=== PATIENT | female | born 1940 | race Caucasian/White ===

== ENCOUNTER 2022-03-02 13:51 | Outpatient (CLI) | payer MEDICARE, BC | END 2022-03-02 13:52 | disposition home or self-care (01) | LOC: EEG 13:51 | PROVIDERS: ATTEND Psychiatry & Neurology Neurology | DX: R53.1 Weakness (principal) | CPT/HCPCS: 95712; 95816; 95957 ==

== ENCOUNTER 2022-03-26 08:24 | Outpatient (CLI) | payer MEDICARE, BC | END 2022-03-26 08:25 | disposition home or self-care (01) | LOC: SCSMRI 08:24 | PROVIDERS: ATTEND Psychiatry & Neurology Neurology | DX: R26.81 Unsteadiness on feet (principal); R53.82 Chronic fatigue, unspecified; M50.30 Other cervical disc degeneration, unspecified cervical region; M48.02 Spinal stenosis, cervical region; M50.81 Other cervical disc disorders, high cervical region | CPT/HCPCS: 72141 ==

== ENCOUNTER 2022-04-30 08:00 | Outpatient (CLI) | payer MEDICARE, BC | END 2022-04-30 08:01 | disposition home or self-care (01) | LOC: PET 08:00 | PROVIDERS: ATTEND Psychiatry & Neurology Neurology | DX: F03.90 Unspecified dementia, unspecified severity, without behavioral disturbance, psychotic disturbance, mood disturbance, and anxiety (principal) | CPT/HCPCS: 78803; A9552 ==

== ENCOUNTER 2022-06-25 05:40 | Inpatient (IN) | payer MEDICARE, BC ==
[2022-06-25] MEDS ORDERED: Fentanyl 100 MCG/2 ML VIAL ONE ×3 (06:02→14:17)
[2022-06-25] MEDS ORDERED: Ondansetron PF 4 MG/2 ML Vial ONE ×2 (06:03→18:06)
[2022-06-25 07:04] LABS: ALT (SGPT) Less than 7 U/L (8-55); AST (SGOT) 14 U/L (5-34); Albumin 3.7 g/dL (3.4-4.8); Alkaline Phosphatase 54 U/L (40-110); Anion Gap 13 mmol/L (10-20); BUN (Urea Nitrogen) 25 mg/dL (9.8-20.1); Bilirubin, Total 0.7 mg/dL (0.2-1.2); Calc. Creatinine Clearance 0 mL/min (70-130); Calcium 9.4 mg/dL (7.8-10.44); Carbon Dioxide 25 mmol/L (23-31); Chloride 102 mmol/L (98-107); Estimated GFR 82; Globulin 3.4 g/dL (2.4-3.5); Glucose 111 mg/dL (83-110); Potassium 3.7 mmol/L (3.5-5.1); Protein, Total 7.1 g/dL (5.8-8.1); Sodium 136 mmol/L (136-145)
[2022-06-25] MEDS ORDERED: Dextrose 5% in Water 1,000 ML IV PRN (07:10)
[2022-06-25] MEDS ORDERED: hydrALAZINE 20 MG/ML VIAL SLOW IVP PRN (07:10)
[2022-06-25] MEDS ORDERED: Dextrose 50% Abboject 50 ML SYRINGE SLOW IVP PRN (07:10)
[2022-06-25] MEDS ORDERED: Ondansetron PF 4 MG/2 ML Vial IVP PRN (07:10)
[2022-06-25] MEDS ORDERED: traMADol HCl 50 MG TAB PO PRN (07:12)
[2022-06-25 07:13] LABS: #Basophils 0.1 thou/uL (0.0-0.2); #Eosinphils 0.1 thou/uL (0.0-0.7); #Lymphocytes 1.5 thou/uL (1.20-3.40); #Monocytes 0.6 thou/uL (0.11-0.59); #Neutrophils 11.1 thou/uL (1.40-6.50); %Basophils 0.4 % (0.0-1.0); %Eosinophils 0.8 % (0.0-10.0); %Lymphocytes 11.3 % (21.0-51.0); %Monocytes 4.6 % (0.0-10.0); Hemoglobin 13.1 g/dL (12.0-16.0); Mean Corpuscular HGB CONC 31.8 g/dL (32.0-36.0); Mean Corpuscular Hemoglobin 27.2 pg (27.0-31.0); Mean Corpuscular Volume 85.8 fL (78.0-98.0); Mean Platelet Volume 8.3 fL (7.4-10.4); Platelet Count 178 thou/uL (130-400); RBC Distribution Width 12.4 % (11.5-14.5); White Blood Cell (WBC) Count 13.3 thou/uL (4.8-10.8)
[2022-06-25] MEDS ORDERED: Sodium Chloride 0.9% 1,000 ML IV SCH (07:15)
[2022-06-25] MEDS ORDERED: CEFAZOLIN 2 GM in Sodium Chloride 0.9% 100 ML IVPB SCH (07:30)
[2022-06-25 07:34] LABS: SARS-CoV-2 NAA Rapid Test Not Detected (NotDetected)
[2022-06-25 07:41] LABS: Magnesium 1.8 mg/dL (1.6-2.6); Phosphorus 3.1 mg/dL (2.3-4.7)
[2022-06-25] MEDS ORDERED: Clindamycin/D5W 900 MG in Premix Bag 1 BAG IVPB SCH (08:15)
[2022-06-25] MEDS ORDERED: Morphine 4 MG/ML VIAL ONE (08:50)
[2022-06-25] MEDS: Morphine 4 MG/ML VIAL SLOW IVP PRN ×2 (08:55→11:25)
[2022-06-25 09:40] VITALS: BMI 35.9
[2022-06-25] MEDS: Acetaminophen 500 MG TAB PO SCH ×3 (09:40→22:40)
[2022-06-25] MEDS: Senokot S 8.6-50 MG TAB PO SCH ×2 (09:42→22:39)
[2022-06-25] MEDS: Gabapentin 100 MG CAP PO SCH ×3 (09:42→22:39)
[2022-06-25] MEDS: Famotidine 20 MG TAB PO SCH ×2 (09:42→22:40)
[2022-06-25] MEDS: Polyethylene Glycol 3350 17 GM Packet PO SCH (09:43)
[2022-06-25] MEDS ORDERED: traMADol HCl 50 MG TAB ONE (09:51)
[2022-06-25] MEDS ORDERED: fentaNYL Citrate/PF 100 MCG/2 ML SYRINGE ONE ×2 (16:13→20:24)
[2022-06-25] MEDS ORDERED: Propofol 1,000 MG/100 ML VIAL IV ONE (16:13)
[2022-06-25] MEDS ORDERED: Phenylephrine 10 MG/ML VIAL ONE (16:14)
[2022-06-25] MEDS ORDERED: Clindamycin/D5W 900 mg/50 ml Premix Bag ONE (17:56)
[2022-06-25] MEDS ORDERED: Dexamethasone 20 MG/5 ML VIAL ONE (18:06)
[2022-06-25] MEDS ORDERED: Lidocaine 1% PF 5 ML VIAL ONE (18:06)
[2022-06-25] MEDS ORDERED: PHENYLEPHRINE-NS 100 MCG/ML 10 ML SYRINGE ONE (18:06)
[2022-06-25] MEDS ORDERED: PROPOFOL 200 MG/20 ML VIAL ONE (18:06)
[2022-06-25] MEDS ORDERED: Ondansetron HCl/PF 4 MG/2 ML Vial IVP PRN (18:33)
[2022-06-25] MEDS ORDERED: Promethazine HCl 25 MG/ML VIAL IVPB PRN (18:33)
[2022-06-25] MEDS ORDERED: Promethazine HCl 25 MG/ML VIAL IM PRN (18:33)
[2022-06-25] MEDS ORDERED: Meperidine HCl/PF 25 MG/ML VIAL ONE (20:40)
[2022-06-25] MEDS: Carbidopa/Levodopa CR 50-200 mg Tablet PO SCH (22:40)
[2022-06-26] MEDS: Clindamycin/D5W 900 MG in Premix Bag 1 BAG IVPB SCH ×3 (02:55→17:20)
[2022-06-26] MEDS: Acetaminophen 500 MG TAB PO SCH ×4 (02:55→20:52)
[2022-06-26] MEDS: traMADol HCl 50 MG TAB PO PRN ×2 (04:36→10:47)
[2022-06-26] MEDS: Cyclobenzaprine 10 MG TAB PO PRN ×2 (04:36→20:54)
[2022-06-26 05:30] LABS: Anion Gap 11 mmol/L (10-20); BUN (Urea Nitrogen) 22 mg/dL (9.8-20.1); Calc. Creatinine Clearance 87 mL/min (70-130); Calcium 8.8 mg/dL (7.8-10.44); Carbon Dioxide 25 mmol/L (23-31); Chloride 101 mmol/L (98-107); Estimated GFR 88; Glucose 131 mg/dL (83-110); Magnesium 1.7 mg/dL (1.6-2.6); Phosphorus 3.7 mg/dL (2.3-4.7); Potassium 3.7 mmol/L (3.5-5.1); Sodium 133 mmol/L (136-145)
[2022-06-26 05:50] LABS: Band 17 % (5-11); Hemoglobin 11.5 g/dL (12.0-16.0); Lymphocytes 9 % (21-51); MDiff Complete? YES; Mean Corpuscular HGB CONC 31.7 g/dL (32.0-36.0); Mean Corpuscular Hemoglobin 27.2 pg (27.0-31.0); Mean Corpuscular Volume 85.9 fL (78.0-98.0); Mean Platelet Volume 8.1 fL (7.4-10.4); Monocytes 3 % (0-10); Neutrophil 71 % (42-75); Platelet Count 180 thou/uL (130-400); RBC Distribution Width 12.3 % (11.5-14.5); Red Blood Cell (RBC) Count 4.23 mill/uL (4.20-5.40); White Blood Cell (WBC) Count 9.9 thou/uL (4.8-10.8)
[2022-06-26] MEDS ORDERED: Magnesium 2 GM/50 ML(in water) 2 GM in Premix Bag 1 BAG IVPB SCH (08:00)
[2022-06-26] MEDS ORDERED: Potassium Phosphate 15 MMOL, Magnesium Sulfate 2 GM in Sodium Chloride 0.9% 250 ML 250 ML IVPB SCH (08:00)
[2022-06-26] MEDS: Carbidopa/Levodopa CR 50-200 mg Tablet PO SCH ×2 (09:04→20:53)
[2022-06-26] MEDS: Gabapentin 100 MG CAP PO SCH ×3 (09:04→20:52)
[2022-06-26] MEDS: Famotidine 20 MG TAB PO SCH ×2 (09:05→20:54)
[2022-06-26] MEDS: FLUoxetine HCl 20 MG CAP PO SCH (09:05)
[2022-06-26] MEDS: Polyethylene Glycol 3350 17 GM Packet PO SCH (09:05)
[2022-06-26] MEDS: Senokot S 8.6-50 MG TAB PO SCH ×2 (09:05→20:54)
[2022-06-26] MEDS: Aspirin 81 mg Enteric Coated Tablet PO SCH ×2 (09:11→20:54)
[2022-06-27] MEDS: Acetaminophen 500 MG TAB PO SCH ×3 (03:15→14:23)
[2022-06-27 06:47] LABS: #Basophils 0.1 thou/uL (0.0-0.2); #Lymphocytes 1.7 thou/uL (1.20-3.40); #Monocytes 0.9 thou/uL (0.11-0.59); #Neutrophils 6.6 thou/uL (1.40-6.50); %Basophils 0.8 % (0.0-1.0); %Eosinophils 0.4 % (0.0-10.0); %Lymphocytes 17.8 % (21.0-51.0); %Monocytes 9.9 % (0.0-10.0); %Neutrophils 71.1 % (42.0-75.0); Hemoglobin 11.1 g/dL (12.0-16.0); Mean Corpuscular HGB CONC 31.2 g/dL (32.0-36.0); Mean Corpuscular Hemoglobin 27.2 pg (27.0-31.0); Mean Platelet Volume 8.7 fL (7.4-10.4); Platelet Count 186 thou/uL (130-400); RBC Distribution Width 12.5 % (11.5-14.5); White Blood Cell (WBC) Count 9.3 thou/uL (4.8-10.8)
[2022-06-27 06:58] LABS: Anion Gap 12 mmol/L (10-20); BUN (Urea Nitrogen) 19 mg/dL (9.8-20.1); Calc. Creatinine Clearance 90 mL/min (70-130); Carbon Dioxide 23 mmol/L (23-31); Chloride 105 mmol/L (98-107); Estimated GFR 89; Glucose 97 mg/dL (83-110); Magnesium 2.2 mg/dL (1.6-2.6); Phosphorus 2.7 mg/dL (2.3-4.7); Sodium 136 mmol/L (136-145)
[2022-06-27] MEDS ORDERED: PHOS-NAK 1 PKT PACK PO SCH (08:15)
[2022-06-27] MEDS: Senokot S 8.6-50 MG TAB PO SCH (09:15)
[2022-06-27] MEDS: Gabapentin 100 MG CAP PO SCH ×2 (09:15→14:24)
[2022-06-27] MEDS: FLUoxetine HCl 20 MG CAP PO SCH (09:15)
[2022-06-27] MEDS: Famotidine 20 MG TAB PO SCH (09:15)
[2022-06-27] MEDS: Polyethylene Glycol 3350 17 GM Packet PO SCH (09:16)
[2022-06-27] MEDS: Aspirin 81 mg Enteric Coated Tablet PO SCH (09:16)
[2022-06-27] MEDS: Carbidopa/Levodopa CR 50-200 mg Tablet PO SCH (09:16)
[2022-06-27 10:03] LABS: Bacteria/HPF None Seen HPF (None Seen); Bilirubin Negative (Negative); Blood, Urine Negative (Negative); Clarity Clear (Clear); Glucose, Urine (Dipstick) Normal (Negative); Ketone, Urine Negative (Negative); Leukocyte Negative Leu/uL (Negative); Nitrite Negative (Negative); Protein, Urine (Dipstick) Negative (Neg-Trace); RBC/HPF 0-3 HPF (0-3); Squamous Epithelial 0-3 HPF (0-3); Urobilinogen Normal mg/dL (Less than 2); WBC/HPF 0-3 HPF (0-3); pH, Urine 6.5 (5.0-9.0)
[2022-06-27] MEDS ORDERED: traMADol HCl 50 MG TAB PO PRN (10:55)
[2022-06-27] MEDS ORDERED: traMADol HCl 50 MG TAB PO SCH (12:00)
[2022-06-27 15:56] VITALS: BP 121/69; TEMP 97.9
== END 2022-06-27 15:52 | DRG 482 ==
LOC: ERS 05:40 → SURG A 06:56
PROVIDERS: ADMIT Surgery; ATTEND Surgery
PROC: 0QS704Z Reposition Left Upper Femur with Internal Fixation Device, Open Approach (ICD-10-PCS; principal; 2022-06-25)
DX: S72.142A Displaced intertrochanteric fracture of left femur, initial encounter for closed fracture (principal); I10 Essential (primary) hypertension; G62.9 Polyneuropathy, unspecified; Z96.653 Presence of artificial knee joint, bilateral; F32.A Depression, unspecified; W19.XXXA Unspecified fall, initial encounter; Z20.822 Contact with and (suspected) exposure to COVID-19; Z90.49 Acquired absence of other specified parts of digestive tract; Z90.710 Acquired absence of both cervix and uterus; Z88.0 Allergy status to penicillin; Z88.5 Allergy status to narcotic agent; Z91.81 History of falling; Y92.002 Bathroom of unspecified non-institutional (private) residence as the place of occurrence of the external cause
CPT/HCPCS: 36415; 71045; 76000; 80048; 80053; 81001; 83735; 84100; 85025; 90471; 90732; 93005; 96374; 96375; 96376; C1713; G0009; G0390; J1100; J2175; J2270; J2370; J2405; J2704; J3010; J3475; J3490; J7050; U0002

== ENCOUNTER 2022-08-03 19:57 | Inpatient (IN) | payer MEDICARE, BC ==
[2022-08-03 20:50] LABS: ALT (SGPT) 7 U/L (8-55); AST (SGOT) 11 U/L (5-34); Albumin 3.6 g/dL (3.4-4.8); Alkaline Phosphatase 72 U/L (40-110); Anion Gap 14 mmol/L (10-20); BUN (Urea Nitrogen) 21 mg/dL (9.8-20.1); Bilirubin, Total 0.7 mg/dL (0.2-1.2); Calc. Creatinine Clearance 0 mL/min (70-130); Calcium 9.7 mg/dL (7.8-10.44); Carbon Dioxide 24 mmol/L (23-31); Chloride 99 mmol/L (98-107); Estimated GFR 67; Globulin 3.6 g/dL (2.4-3.5); Glucose 101 mg/dL (83-110); Potassium 3.9 mmol/L (3.5-5.1); Protein, Total 7.2 g/dL (5.8-8.1); Sodium 133 mmol/L (136-145)
[2022-08-03 21:13] LABS: #Basophils 0.1 thou/uL (0.0-0.2); #Eosinphils 0.2 thou/uL (0.0-0.7); #Lymphocytes 1.5 thou/uL (1.20-3.40); #Monocytes 0.8 thou/uL (0.11-0.59); %Basophils 0.7 % (0.0-1.0); %Eosinophils 1.9 % (0.0-10.0); %Lymphocytes 17.8 % (21.0-51.0); %Monocytes 9.6 % (0.0-10.0); Hemoglobin 11.1 g/dL (12.0-16.0); Mean Corpuscular HGB CONC 32.4 g/dL (32.0-36.0); Mean Corpuscular Hemoglobin 28.2 pg (27.0-31.0); Mean Corpuscular Volume 86.8 fl (78.0-98.0); Mean Platelet Volume 8.2 fL (7.4-10.4); Platelet Count 241 10x3/uL (130-400); RBC Distribution Width 13.2 % (11.5-14.5); Red Blood Cell (RBC) Count 3.93 mill/uL (4.20-5.40); White Blood Cell (WBC) Count 8.6 10x3/uL (4.8-10.8)
[2022-08-03 22:42] LABS: Bacteria/HPF 4+ HPF (None Seen); Bilirubin Negative (Negative); Blood, Urine Negative (Negative); Clarity Turbid (Clear); Glucose, Urine (Dipstick) Normal (Negative); Ketone, Urine Negative (Negative); Leukocyte 250 Leu/uL (Negative); Nitrite Negative (Negative); Protein, Urine (Dipstick) Negative (Neg-Trace); RBC/HPF 0-3 HPF (0-3); Squamous Epithelial 0-3 HPF (0-3); Urobilinogen Normal mg/dL (Less than 2); WBC/HPF 21-50 HPF (0-3); pH, Urine 6.5 (5.0-9.0)
[2022-08-03] MEDS ORDERED: cefTRIAXone\\ROCEPHIN 1 GM VIAL ONE (23:06)
[2022-08-04] MEDS ORDERED: Ondansetron ODT 4 MG TAB PO PRN (00:16)
[2022-08-04] MEDS ORDERED: Ondansetron PF 4 MG/2 ML Vial IVP PRN (00:16)
[2022-08-04] MEDS ORDERED: Sterile Water 10 ML VIAL FS PRN (00:30)
[2022-08-04] MEDS ORDERED: OLANZapine 10 MG VIAL IM SCH (00:30)
[2022-08-04] MEDS: Sodium Chloride 0.9% 1,000 ML IV SCH ×2 (01:09→18:13)
[2022-08-04 01:34] VITALS: BMI 34.4
[2022-08-04 02:11] LABS: Amphetamine Not Detected (NotDetected); Barbiturates Screen Not Detected (NotDetected); Benzodiazepine Screen Not Detected (NotDetected); Cocaine Metabolite Screen Not Detected (NotDetected); Methadone Not Detected (NotDetected); Methamphetamine Not Detected (NotDetected); Opiate Screen Not Detected (NotDetected); Oxycodone Screen Not Detected (NotDetected); Phencyclidine (PCP) Not Detected (NotDetected); THC/Cannabinoid Screen Not Detected (NotDetected); Tricyclic Screen Not Detected (NotDetected)
[2022-08-04] MEDS: cefTRIAXone\\ROCEPHIN 1 GM in Sodium Chloride 0.9% 100 ML IVPB SCH (04:31)
[2022-08-04 04:58] LABS: #Eosinphils 0.2 thou/uL (0.0-0.7); #Lymphocytes 2.2 thou/uL (1.20-3.40); #Monocytes 0.7 thou/uL (0.11-0.59); #Neutrophils 3.6 thou/uL (1.40-6.50); %Basophils 0.7 % (0.0-1.0); %Lymphocytes 32.3 % (21.0-51.0); %Monocytes 10.8 % (0.0-10.0); %Neutrophils 53.3 % (42.0-75.0); Hemoglobin 10.3 g/dL (12.0-16.0); Mean Corpuscular HGB CONC 31.9 g/dL (32.0-36.0); Mean Corpuscular Hemoglobin 27.9 pg (27.0-31.0); Mean Corpuscular Volume 87.4 fl (78.0-98.0); Mean Platelet Volume 8.1 fL (7.4-10.4); Platelet Count 209 10x3/uL (130-400); RBC Distribution Width 13.1 % (11.5-14.5); Red Blood Cell (RBC) Count 3.68 mill/uL (4.20-5.40); White Blood Cell (WBC) Count 6.7 10x3/uL (4.8-10.8)
[2022-08-04 05:37] LABS: Anion Gap 11 mmol/L (10-20); BUN (Urea Nitrogen) 18 mg/dL (9.8-20.1); Calc. Creatinine Clearance 76 mL/min (70-130); Calcium 9.4 mg/dL (7.8-10.44); Carbon Dioxide 26 mmol/L (23-31); Chloride 102 mmol/L (98-107); Estimated GFR 80; Glucose 81 mg/dL (83-110); Potassium 3.6 mmol/L (3.5-5.1); Sodium 135 mmol/L (136-145)
[2022-08-04] MEDS ORDERED: Carbidopa/Levodopa CR 50-200 mg Tablet PO SCH (09:00)
[2022-08-04] MEDS ORDERED: Aspirin 325 mg Enteric Coated Tablet PO SCH (09:00)
[2022-08-04] MEDS ORDERED: Magnevist 469MG/ML 20 ML VIAL ONE ×3 (09:02→09:04)
[2022-08-04 11:45] LABS: Cardiac Risk 4.2 (Less than 4.5)
[2022-08-04] MEDS: FLUoxetine HCl 20 MG CAP PO SCH (13:12)
[2022-08-04] MEDS: Senokot S 8.6-50 MG TAB PO SCH ×2 (13:13→20:42)
[2022-08-04] MEDS: Atenolol 50 MG TAB PO SCH (13:26)
[2022-08-04] MEDS: Losartan 25 MG TAB PO SCH (13:27)
[2022-08-04] MEDS: Chlorthalidone 25 MG TAB PO SCH (13:27)
[2022-08-04] MEDS: Carbidopa/Levodopa CR 50-200 mg Tablet PO SCH ×2 (13:27→20:43)
[2022-08-04] MEDS: Acetaminophen 325 MG TAB PO PRN (18:13)
[2022-08-04] MEDS: Famotidine 20 MG TAB PO SCH (20:42)
[2022-08-04] MEDS: Atorvastatin Calcium 40 MG TAB PO SCH (20:42)
[2022-08-04] MEDS: Heparin 5,000 UNITS/ML VIAL SC SCH (20:43)
[2022-08-05] MEDS: cefTRIAXone\\ROCEPHIN 1 GM in Sodium Chloride 0.9% 100 ML IVPB SCH (03:17)
[2022-08-05] MEDS: Sodium Chloride 0.9% 1,000 ML IV SCH ×3 (03:17→20:06)
[2022-08-05 05:00] LABS: #Basophils 0.1 thou/uL (0.0-0.2); #Eosinphils 0.2 thou/uL (0.0-0.7); #Lymphocytes 1.6 thou/uL (1.20-3.40); #Monocytes 0.5 thou/uL (0.11-0.59); #Neutrophils 2.5 thou/uL (1.40-6.50); %Eosinophils 4.3 % (0.0-10.0); %Lymphocytes 32.3 % (21.0-51.0); %Monocytes 10.4 % (0.0-10.0); %Neutrophils 51.9 % (42.0-75.0); Hemoglobin 10.4 g/dL (12.0-16.0); Mean Corpuscular HGB CONC 31.3 g/dL (32.0-36.0); Mean Corpuscular Hemoglobin 27.9 pg (27.0-31.0); Mean Corpuscular Volume 89.1 fl (78.0-98.0); Platelet Count 185 10x3/uL (130-400); RBC Distribution Width 13.2 % (11.5-14.5); Red Blood Cell (RBC) Count 3.71 mill/uL (4.20-5.40); White Blood Cell (WBC) Count 4.8 10x3/uL (4.8-10.8)
[2022-08-05 05:18] LABS: ALT (SGPT) Less than 7 U/L (8-55); AST (SGOT) 11 U/L (5-34); Albumin 3.2 g/dL (3.4-4.8); Alkaline Phosphatase 62 U/L (40-110); Anion Gap 10 mmol/L (10-20); BUN (Urea Nitrogen) 15 mg/dL (9.8-20.1); Bilirubin, Total 0.6 mg/dL (0.2-1.2); Calc. Creatinine Clearance 85 mL/min (70-130); Calcium 9.3 mg/dL (7.8-10.44); Carbon Dioxide 27 mmol/L (23-31); Chloride 105 mmol/L (98-107); Estimated GFR 88; Globulin 3.1 g/dL (2.4-3.5); Glucose 80 mg/dL (83-110); Potassium 3.7 mmol/L (3.5-5.1); Protein, Total 6.3 g/dL (5.8-8.1); Sodium 138 mmol/L (136-145)
[2022-08-05] MEDS: Chlorthalidone 25 MG TAB PO SCH (11:43)
[2022-08-05] MEDS: Losartan 25 MG TAB PO SCH (11:43)
[2022-08-05] MEDS: Carbidopa/Levodopa CR 50-200 mg Tablet PO SCH ×3 (11:43→21:03)
[2022-08-05] MEDS: Senokot S 8.6-50 MG TAB PO SCH ×2 (11:44→21:04)
[2022-08-05] MEDS: FLUoxetine HCl 20 MG CAP PO SCH (11:44)
[2022-08-05] MEDS: Atenolol 50 MG TAB PO SCH (11:44)
[2022-08-05] MEDS: Famotidine 20 MG TAB PO SCH ×2 (12:20→21:03)
[2022-08-05] MEDS: Heparin 5,000 UNITS/ML VIAL SC SCH ×2 (12:46→21:03)
[2022-08-05] MEDS: Atorvastatin Calcium 40 MG TAB PO SCH (21:02)
[2022-08-05] MEDS: Melatonin 3 MG TAB PO PRN (21:03)
[2022-08-06] MEDS: cefTRIAXone\\ROCEPHIN 1 GM in Sodium Chloride 0.9% 100 ML IVPB SCH (03:24)
[2022-08-06 04:14] LABS: #Basophils 0.1 thou/uL (0.0-0.2); #Eosinphils 0.2 thou/uL (0.0-0.7); #Lymphocytes 1.3 thou/uL (1.20-3.40); #Monocytes 0.5 thou/uL (0.11-0.59); #Neutrophils 2.6 thou/uL (1.40-6.50); %Basophils 1.2 % (0.0-1.0); %Eosinophils 3.5 % (0.0-10.0); %Lymphocytes 28.7 % (21.0-51.0); %Monocytes 10.2 % (0.0-10.0); %Neutrophils 56.4 % (42.0-75.0); Mean Corpuscular HGB CONC 32.6 g/dL (32.0-36.0); Mean Corpuscular Hemoglobin 28.9 pg (27.0-31.0); Mean Corpuscular Volume 88.7 fl (78.0-98.0); Mean Platelet Volume 7.4 fL (7.4-10.4); Platelet Count 168 10x3/uL (130-400); RBC Distribution Width 12.8 % (11.5-14.5); Red Blood Cell (RBC) Count 3.45 mill/uL (4.20-5.40); White Blood Cell (WBC) Count 4.6 10x3/uL (4.8-10.8)
[2022-08-06 04:55] LABS: ALT (SGPT) Less than 7 U/L (8-55); AST (SGOT) 8 U/L (5-34); Albumin 2.6 g/dL (3.4-4.8); Alkaline Phosphatase 49 U/L (40-110); Anion Gap 12 mmol/L (10-20); BUN (Urea Nitrogen) 9 mg/dL (9.8-20.1); Bilirubin, Total 0.4 mg/dL (0.2-1.2); Calc. Creatinine Clearance 96 mL/min (70-130); Calcium 7.5 mg/dL (7.8-10.44); Carbon Dioxide 23 mmol/L (23-31); Chloride 110 mmol/L (98-107); Estimated GFR 91; Globulin 2.6 g/dL (2.4-3.5); Glucose 75 mg/dL (83-110); Magnesium 1.3 mg/dL (1.6-2.6); Phosphorus 3.6 mg/dL (2.3-4.7); Potassium 2.9 mmol/L (3.5-5.1); Protein, Total 5.2 g/dL (5.8-8.1); Sodium 142 mmol/L (136-145)
[2022-08-06] MEDS: Acetaminophen 325 MG TAB PO PRN (05:13)
[2022-08-06] MEDS ORDERED: Electrolyte Replacement Protocol 1 EACH FS SCH (07:46)
[2022-08-06 09:30] LABS: Anion Gap 11 mmol/L (10-20); BUN (Urea Nitrogen) 9 mg/dL (9.8-20.1); Calc. Creatinine Clearance 87 mL/min (70-130); Carbon Dioxide 27 mmol/L (23-31); Chloride 102 mmol/L (98-107); Estimated GFR 89; Glucose 105 mg/dL (83-110); Magnesium 1.6 mg/dL (1.6-2.6); Potassium 3.3 mmol/L (3.5-5.1); Sodium 137 mmol/L (136-145)
[2022-08-06] MEDS: FLUoxetine HCl 20 MG CAP PO SCH (10:33)
[2022-08-06] MEDS: Chlorthalidone 25 MG TAB PO SCH (10:34)
[2022-08-06] MEDS: Famotidine 20 MG TAB PO SCH ×2 (10:34→20:51)
[2022-08-06] MEDS: Losartan 25 MG TAB PO SCH (10:35)
[2022-08-06] MEDS: Potassium Chloride 20 MEQ TAB PO SCH ×2 (10:35→17:53)
[2022-08-06] MEDS: Atenolol 50 MG TAB PO SCH (10:35)
[2022-08-06] MEDS: Senokot S 8.6-50 MG TAB PO SCH ×2 (10:36→20:51)
[2022-08-06] MEDS: Magnesium Sulfate In Water 4 GM in Premix Bag 1 BAG IVPB SCH ×2 (10:36→10:48)
[2022-08-06] MEDS: Magnesium Sulfate 4 GM in Sodium Chloride 0.9% 250 ML 250 ML IVPB SCH ×2 (10:37→10:49)
[2022-08-06] MEDS: Carbidopa/Levodopa CR 50-200 mg Tablet PO SCH ×3 (10:41→20:52)
[2022-08-06] MEDS: Heparin 5,000 UNITS/ML VIAL SC SCH ×2 (10:46→20:52)
[2022-08-06] MEDS: Sodium Chloride 0.9% 1,000 ML IV SCH (11:05)
[2022-08-06] MEDS: Atorvastatin Calcium 40 MG TAB PO SCH (20:51)
[2022-08-06] MEDS: Melatonin 3 MG TAB PO PRN (20:52)
[2022-08-07] MEDS: cefTRIAXone\\ROCEPHIN 1 GM in Sodium Chloride 0.9% 100 ML IVPB SCH (03:23)
[2022-08-07] MEDS: Sodium Chloride 0.9% 1,000 ML IV SCH ×2 (03:23→18:15)
[2022-08-07 04:40] LABS: #Eosinphils 0.2 thou/uL (0.0-0.7); #Lymphocytes 1.2 thou/uL (1.20-3.40); #Monocytes 0.5 thou/uL (0.11-0.59); #Neutrophils 3.1 thou/uL (1.40-6.50); %Eosinophils 4.5 % (0.0-10.0); %Lymphocytes 22.8 % (21.0-51.0); %Monocytes 9.8 % (0.0-10.0); Hemoglobin 10.7 g/dL (12.0-16.0); Mean Corpuscular HGB CONC 31.2 g/dL (32.0-36.0); Mean Corpuscular Hemoglobin 27.7 pg (27.0-31.0); Mean Corpuscular Volume 88.7 fl (78.0-98.0); Mean Platelet Volume 7.7 fL (7.4-10.4); Platelet Count 190 10x3/uL (130-400); Red Blood Cell (RBC) Count 3.85 mill/uL (4.20-5.40); White Blood Cell (WBC) Count 5.1 10x3/uL (4.8-10.8)
[2022-08-07 05:06] LABS: ALT (SGPT) Less than 7 U/L (8-55); AST (SGOT) 10 U/L (5-34); Albumin 3.3 g/dL (3.4-4.8); Alkaline Phosphatase 66 U/L (40-110); Anion Gap 10 mmol/L (10-20); BUN (Urea Nitrogen) 6 mg/dL (9.8-20.1); Bilirubin, Total 0.6 mg/dL (0.2-1.2); Calc. Creatinine Clearance 86 mL/min (70-130); Calcium 8.7 mg/dL (7.8-10.44); Carbon Dioxide 27 mmol/L (23-31); Chloride 104 mmol/L (98-107); Estimated GFR 89; Globulin 2.8 g/dL (2.4-3.5); Glucose 88 mg/dL (83-110); Magnesium 1.8 mg/dL (1.6-2.6); Protein, Total 6.1 g/dL (5.8-8.1); Sodium 137 mmol/L (136-145)
[2022-08-07 05:12] LABS: Phosphorus 2.9 mg/dL (2.3-4.7)
[2022-08-07] MEDS ORDERED: Magnesium 2 GM/50 ML(in water) 2 GM in Premix Bag 1 BAG IVPB SCH (08:00)
[2022-08-07] MEDS: Heparin 5,000 UNITS/ML VIAL SC SCH ×2 (09:26→21:48)
[2022-08-07] MEDS: Aspirin 81 mg Enteric Coated Tablet PO SCH (09:26)
[2022-08-07] MEDS: Atenolol 50 MG TAB PO SCH (09:26)
[2022-08-07] MEDS: Losartan 25 MG TAB PO SCH (09:26)
[2022-08-07] MEDS: Chlorthalidone 25 MG TAB PO SCH (09:26)
[2022-08-07] MEDS: FLUoxetine HCl 20 MG CAP PO SCH (09:26)
[2022-08-07] MEDS: Carbidopa/Levodopa CR 50-200 mg Tablet PO SCH ×3 (09:26→21:48)
[2022-08-07] MEDS: Senokot S 8.6-50 MG TAB PO SCH ×2 (09:26→21:48)
[2022-08-07] MEDS: Famotidine 20 MG TAB PO SCH ×2 (09:27→21:48)
[2022-08-07] MEDS: Cephalexin 250 MG CAP PO SCH ×2 (18:15→23:28)
[2022-08-07] MEDS: Atorvastatin Calcium 40 MG TAB PO SCH (21:48)
[2022-08-07] MEDS: Melatonin 3 MG TAB PO PRN (21:48)
[2022-08-08] MEDS: Sodium Chloride 0.9% 1,000 ML IV SCH (06:23)
[2022-08-08] MEDS: Cephalexin 250 MG CAP PO SCH ×4 (06:23→23:17)
[2022-08-08] MEDS: Heparin 5,000 UNITS/ML VIAL SC SCH ×2 (10:29→22:28)
[2022-08-08] MEDS: Carbidopa/Levodopa CR 50-200 mg Tablet PO SCH ×3 (10:30→22:30)
[2022-08-08] MEDS: Atenolol 50 MG TAB PO SCH (10:30)
[2022-08-08] MEDS: FLUoxetine HCl 20 MG CAP PO SCH (10:30)
[2022-08-08] MEDS: Aspirin 81 mg Enteric Coated Tablet PO SCH (10:30)
[2022-08-08] MEDS: Chlorthalidone 25 MG TAB PO SCH (10:30)
[2022-08-08] MEDS: Losartan 25 MG TAB PO SCH (10:30)
[2022-08-08] MEDS: Senokot S 8.6-50 MG TAB PO SCH ×2 (10:30→22:28)
[2022-08-08] MEDS: Famotidine 20 MG TAB PO SCH ×2 (10:30→22:29)
[2022-08-08] MEDS: Atorvastatin Calcium 40 MG TAB PO SCH (22:29)
[2022-08-09] MEDS: Sodium Chloride 0.9% 1,000 ML IV SCH ×2 (02:09→14:08)
[2022-08-09 05:10] LABS: #Eosinphils 0.3 thou/uL (0.0-0.7); #Lymphocytes 1.7 thou/uL (1.20-3.40); #Monocytes 0.6 thou/uL (0.11-0.59); #Neutrophils 3.3 thou/uL (1.40-6.50); %Basophils 0.5 % (0.0-1.0); %Eosinophils 4.5 % (0.0-10.0); %Lymphocytes 28.5 % (21.0-51.0); %Monocytes 10.6 % (0.0-10.0); %Neutrophils 55.9 % (42.0-75.0); Hemoglobin 10.5 g/dL (12.0-16.0); Mean Corpuscular HGB CONC 31.5 g/dL (32.0-36.0); Mean Corpuscular Hemoglobin 27.8 pg (27.0-31.0); Mean Corpuscular Volume 88.3 fl (78.0-98.0); Mean Platelet Volume 8.2 fL (7.4-10.4); Platelet Count 200 10x3/uL (130-400); Red Blood Cell (RBC) Count 3.79 mill/uL (4.20-5.40)
[2022-08-09 05:29] LABS: Anion Gap 12 mmol/L (10-20); BUN (Urea Nitrogen) 9 mg/dL (9.8-20.1); Calc. Creatinine Clearance 95 mL/min (70-130); Carbon Dioxide 25 mmol/L (23-31); Chloride 103 mmol/L (98-107); Estimated GFR 91; Glucose 88 mg/dL (83-110); Potassium 3.1 mmol/L (3.5-5.1); Sodium 137 mmol/L (136-145)
[2022-08-09] MEDS: Cephalexin 250 MG CAP PO SCH ×4 (06:49→23:27)
[2022-08-09] MEDS ORDERED: Potassium Chloride 20 MEQ TAB PO SCH (08:00)
[2022-08-09] MEDS: Aspirin 81 mg Enteric Coated Tablet PO SCH (08:35)
[2022-08-09] MEDS: Chlorthalidone 25 MG TAB PO SCH (08:35)
[2022-08-09] MEDS: Atenolol 50 MG TAB PO SCH ×2 (08:35→08:36)
[2022-08-09] MEDS: FLUoxetine HCl 20 MG CAP PO SCH (08:35)
[2022-08-09] MEDS: Losartan 25 MG TAB PO SCH (08:36)
[2022-08-09] MEDS: Famotidine 20 MG TAB PO SCH ×2 (08:36→20:47)
[2022-08-09] MEDS: Carbidopa/Levodopa CR 50-200 mg Tablet PO SCH ×3 (08:37→20:48)
[2022-08-09] MEDS: Heparin 5,000 UNITS/ML VIAL SC SCH ×2 (08:48→20:48)
[2022-08-09] MEDS: Senokot S 8.6-50 MG TAB PO SCH ×2 (08:49→20:48)
[2022-08-09] MEDS: Atorvastatin Calcium 40 MG TAB PO SCH (20:48)
[2022-08-10] MEDS: Cephalexin 250 MG CAP PO SCH ×3 (06:23→18:37)
[2022-08-10] MEDS: Sodium Chloride 0.9% 1,000 ML IV SCH (08:30)
[2022-08-10] MEDS: Chlorthalidone 25 MG TAB PO SCH (10:05)
[2022-08-10] MEDS: FLUoxetine HCl 20 MG CAP PO SCH (10:05)
[2022-08-10] MEDS: Heparin 5,000 UNITS/ML VIAL SC SCH (10:05)
[2022-08-10] MEDS: Carbidopa/Levodopa CR 50-200 mg Tablet PO SCH ×2 (10:05→15:55)
[2022-08-10] MEDS: Aspirin 81 mg Enteric Coated Tablet PO SCH (10:05)
[2022-08-10] MEDS: Losartan 25 MG TAB PO SCH (10:06)
[2022-08-10] MEDS: Senokot S 8.6-50 MG TAB PO SCH (10:06)
[2022-08-10] MEDS: Famotidine 20 MG TAB PO SCH (10:06)
[2022-08-10] MEDS ORDERED: Atenolol 50 MG TAB PO SCH (10:15)
[2022-08-10] MEDS ORDERED: Bisacodyl 5 MG TAB PO PRN (10:18)
[2022-08-10 12:22] LABS: Potassium 3.6 mmol/L (3.5-5.1)
[2022-08-10 19:39] VITALS: BP 133/61; TEMP 97.8
== END 2022-08-10 20:25 | DRG 689 ==
LOC: ERS 19:57 → 2NO 23:45 → OBSVTOIN 08-04 12:33
PROVIDERS: ADMIT Internal Medicine; ATTEND Internal Medicine
DX: N39.0 Urinary tract infection, site not specified (principal); G93.41 Metabolic encephalopathy; F05 Delirium due to known physiological condition; Z66 Do not resuscitate; Z20.822 Contact with and (suspected) exposure to COVID-19; G20 Parkinson's disease; I10 Essential (primary) hypertension; G62.9 Polyneuropathy, unspecified; Z96.653 Presence of artificial knee joint, bilateral; D64.9 Anemia, unspecified; F32.A Depression, unspecified; B96.1 Klebsiella pneumoniae [K. pneumoniae] as the cause of diseases classified elsewhere; F02.80 Dementia in other diseases classified elsewhere, unspecified severity, without behavioral disturbance, psychotic disturbance, mood disturbance, and anxiety; Z87.440 Personal history of urinary (tract) infections; Z88.6 Allergy status to analgesic agent; Z88.5 Allergy status to narcotic agent; Z88.0 Allergy status to penicillin; Z88.8 Allergy status to other drugs, medicaments and biological substances; Z79.899 Other long term (current) drug therapy; Z79.82 Long term (current) use of aspirin; Z90.710 Acquired absence of both cervix and uterus; Z90.49 Acquired absence of other specified parts of digestive tract; Z98.890 Other specified postprocedural states; Z83.3 Family history of diabetes mellitus; S72.142D Displaced intertrochanteric fracture of left femur, subsequent encounter for closed fracture with routine healing; W18.30XD Fall on same level, unspecified, subsequent encounter
CPT/HCPCS: 36415; 51701; 70450; 70545; 70548; 70553; 74230; 80048; 80053; 80061; 80306; 81003; 81015; 83735; 84100; 84132; 85025; 87040; 87077; 87086; 87186; 93005; 95712; 95819; 95957; 96365; 96372; A9579; G0378; J0696; J1644; J3475; J3490; J7050; U0003; U0005

== ENCOUNTER 2022-08-28 11:21 | Inpatient (IN) | payer MEDICARE, BC ==
[2022-08-28 12:58] LABS: #Eosinphils 0.1 thou/uL (0.0-0.7); #Lymphocytes 1.3 thou/uL (1.20-3.40); #Monocytes 0.4 thou/uL (0.11-0.59); #Neutrophils 5.1 thou/uL (1.40-6.50); %Basophils 0.5 % (0.0-1.0); %Eosinophils 2.1 % (0.0-10.0); %Monocytes 5.9 % (0.0-10.0); %Neutrophils 72.5 % (42.0-75.0); Hemoglobin 12.6 g/dL (12.0-16.0); Mean Corpuscular HGB CONC 32.2 g/dL (32.0-36.0); Mean Corpuscular Hemoglobin 27.8 pg (27.0-31.0); Mean Corpuscular Volume 86.5 fl (78.0-98.0); Mean Platelet Volume 8.5 fL (7.4-10.4); Platelet Count 209 10x3/uL (130-400); RBC Distribution Width 12.8 % (11.5-14.5); Red Blood Cell (RBC) Count 4.52 mill/uL (4.20-5.40)
[2022-08-28 13:22] LABS: ALT (SGPT) Less than 7 U/L (8-55); AST (SGOT) 15 U/L (5-34); Albumin 3.8 g/dL (3.4-4.8); Alkaline Phosphatase 86 U/L (40-110); Anion Gap 11 mmol/L (10-20); BUN (Urea Nitrogen) 14 mg/dL (9.8-20.1); Bilirubin, Total 0.6 mg/dL (0.2-1.2); Calc. Creatinine Clearance 0 mL/min (70-130); Calcium 9.3 mg/dL (7.8-10.44); Carbon Dioxide 27 mmol/L (23-31); Chloride 101 mmol/L (98-107); Estimated GFR 87; Globulin 3.3 g/dL (2.4-3.5); Glucose 97 mg/dL (83-110); Potassium 4.3 mmol/L (3.5-5.1); Protein, Total 7.1 g/dL (5.8-8.1); Sodium 135 mmol/L (136-145)
[2022-08-28 13:38] LABS: Bilirubin Negative (Negative); Blood, Urine Negative (Negative); Clarity Clear (Clear); Glucose, Urine (Dipstick) Normal (Negative); Ketone, Urine Negative (Negative); Leukocyte Negative Leu/uL (Negative); Nitrite Negative (Negative); Protein, Urine (Dipstick) Negative (Neg-Trace); Specific Gravity, Urine 1.012 (1.002-1.036); Urobilinogen Normal mg/dL (Less than 2); pH, Urine 6.5 (5.0-9.0)
[2022-08-28] MEDS ORDERED: Aspirin 325 MG TAB ONE (15:17)
[2022-08-28] MEDS ORDERED: Acetaminophen 650 MG Suppository PR PRN (15:45)
[2022-08-28] MEDS ORDERED: Acetaminophen 325 MG TAB PO PRN (15:45)
[2022-08-28] MEDS ORDERED: Ondansetron PF 4 MG/2 ML Vial IVP PRN (15:45)
[2022-08-28] MEDS ORDERED: Ondansetron ODT 4 MG TAB PO PRN (15:45)
[2022-08-28] MEDS ORDERED: hydrALAZINE 20 MG/ML VIAL SLOW IVP PRN (15:45)
[2022-08-28] MEDS ORDERED: Carbidopa/Levodopa 25-100 mg Tablet PO SCH (15:55)
[2022-08-28 18:08] VITALS: BMI 33.0
[2022-08-28] MEDS: Carbidopa/Levodopa [Carbidopa-Levo Er 25-100 Tab] PO SCH (20:55)
[2022-08-28] MEDS: Atorvastatin Calcium 40 MG TAB PO SCH (20:55)
[2022-08-28] MEDS ORDERED: Atorvastatin Calcium 40 MG TAB PO SCH (21:00)
[2022-08-29 05:26] LABS: #Eosinphils 0.3 thou/uL (0.0-0.7); #Lymphocytes 1.5 thou/uL (1.20-3.40); #Monocytes 0.6 thou/uL (0.11-0.59); #Neutrophils 4.2 thou/uL (1.40-6.50); %Basophils 0.7 % (0.0-1.0); %Lymphocytes 22.9 % (21.0-51.0); %Monocytes 9.5 % (0.0-10.0); Hemoglobin 11.8 g/dL (12.0-16.0); Mean Corpuscular HGB CONC 31.2 g/dL (32.0-36.0); Mean Corpuscular Hemoglobin 27.2 pg (27.0-31.0); Mean Corpuscular Volume 87.3 fl (78.0-98.0); Mean Platelet Volume 8.4 fL (7.4-10.4); Platelet Count 205 10x3/uL (130-400); RBC Distribution Width 12.7 % (11.5-14.5); Red Blood Cell (RBC) Count 4.34 mill/uL (4.20-5.40); White Blood Cell (WBC) Count 6.6 10x3/uL (4.8-10.8)
[2022-08-29 05:46] LABS: Anion Gap 12 mmol/L (10-20); BUN (Urea Nitrogen) 12 mg/dL (9.8-20.1); Calc. Creatinine Clearance 81 mL/min (70-130); Calcium 9.4 mg/dL (7.8-10.44); Carbon Dioxide 25 mmol/L (23-31); Cardiac Risk 3.8 (Less than 4.5); Chloride 102 mmol/L (98-107); Cholesterol 150 mg/dl (< 200 Desired); Estimated GFR 88; Glucose 94 mg/dL (83-110); HDL Cholesterol 40 mg/dL (>60 Neg Risk); LDL Cholesterol, Calculated 91 mg/dL; Potassium 3.7 mmol/L (3.5-5.1); Sodium 135 mmol/L (136-145); Triglycerides 95 mg/dL (Less than 150)
[2022-08-29] MEDS: FLUoxetine HCl 20 MG CAP PO SCH (08:19)
[2022-08-29] MEDS: Valsartan 80 MG TAB PO SCH (08:20)
[2022-08-29] MEDS: Atenolol 50 MG TAB PO SCH (08:20)
[2022-08-29] MEDS: Chlorthalidone 25 MG TAB PO SCH (08:20)
[2022-08-29] MEDS: Potassium Chloride 10 MEQ TAB PO SCH ×2 (08:20→16:33)
[2022-08-29] MEDS: Amantadine HCl 100 mg Capsule PO SCH ×2 (08:21→21:19)
[2022-08-29] MEDS: Triamcinolone 0.1% Dental Paste 5 GM TUBE TOP SCH ×2 (08:21→21:21)
[2022-08-29] MEDS: Carbidopa/Levodopa [Carbidopa-Levo Er 25-100 Tab] PO SCH ×2 (08:21→21:19)
[2022-08-29] MEDS ORDERED: Aspirin 81 mg Enteric Coated Tablet PO SCH (09:00)
[2022-08-29] MEDS ORDERED: Lorazepam 0.5 MG TAB PO PRN (10:07)
[2022-08-29] MEDS ORDERED: Lorazepam 1 MG TAB PO SCH (12:03)
[2022-08-29] MEDS ORDERED: levETIRAcetam 500 MG/5 ML VIAL SLOW IVP SCH (12:04)
[2022-08-29 19:41] LABS: SARS-CoV-2 NAA Rapid Test Not Detected (NotDetected)
[2022-08-29] MEDS: Atorvastatin Calcium 40 MG TAB PO SCH (21:19)
[2022-08-29] MEDS: levETIRAcetam 500 MG/5 ML VIAL SLOW IVP SCH (21:19)
[2022-08-30 05:41] LABS: #Basophils 0.1 thou/uL (0.0-0.2); #Eosinphils 0.3 thou/uL (0.0-0.7); #Lymphocytes 1.8 thou/uL (1.20-3.40); #Monocytes 0.7 thou/uL (0.11-0.59); #Neutrophils 3.2 thou/uL (1.40-6.50); %Basophils 1.1 % (0.0-1.0); %Eosinophils 4.6 % (0.0-10.0); %Lymphocytes 29.3 % (21.0-51.0); %Monocytes 11.5 % (0.0-10.0); %Neutrophils 53.5 % (42.0-75.0); Hemoglobin 11.9 g/dL (12.0-16.0); Mean Corpuscular HGB CONC 31.2 g/dL (32.0-36.0); Mean Corpuscular Volume 86.7 fl (78.0-98.0); Mean Platelet Volume 8.2 fL (7.4-10.4); Platelet Count 198 10x3/uL (130-400); RBC Distribution Width 12.7 % (11.5-14.5); Red Blood Cell (RBC) Count 4.42 mill/uL (4.20-5.40)
[2022-08-30 05:56] LABS: Anion Gap 10 mmol/L (10-20); BUN (Urea Nitrogen) 12 mg/dL (9.8-20.1); Calc. Creatinine Clearance 82 mL/min (70-130); Calcium 9.3 mg/dL (7.8-10.44); Carbon Dioxide 25 mmol/L (23-31); Chloride 100 mmol/L (98-107); Estimated GFR 89; Glucose 89 mg/dL (83-110); Potassium 3.4 mmol/L (3.5-5.1); Sodium 132 mmol/L (136-145)
[2022-08-30] MEDS ORDERED: Potassium Chloride 20 MEQ TAB PO SCH (08:30)
[2022-08-30] MEDS: Enoxaparin Sodium 40 MG/0.4 ML SYRINGE SC SCH (08:48)
[2022-08-30] MEDS: FLUoxetine HCl 20 MG CAP PO SCH (08:49)
[2022-08-30] MEDS: Carbidopa/Levodopa [Carbidopa-Levo Er 25-100 Tab] PO SCH ×2 (08:49→20:21)
[2022-08-30] MEDS: Triamcinolone 0.1% Dental Paste 5 GM TUBE TOP SCH ×2 (08:49→20:21)
[2022-08-30] MEDS: levETIRAcetam 500 MG/5 ML VIAL SLOW IVP SCH ×2 (08:50→20:21)
[2022-08-30] MEDS: Amantadine HCl 100 mg Capsule PO SCH ×2 (08:50→20:21)
[2022-08-30] MEDS: Chlorthalidone 25 MG TAB PO SCH (08:50)
[2022-08-30] MEDS: Aspirin Chewable 81 MG TAB PO SCH (08:50)
[2022-08-30] MEDS: Valsartan 80 MG TAB PO SCH (08:50)
[2022-08-30] MEDS: Potassium Chloride 10 MEQ TAB PO SCH ×2 (08:50→17:04)
[2022-08-30] MEDS: Atenolol 50 MG TAB PO SCH (08:51)
[2022-08-30] MEDS: Atorvastatin Calcium 40 MG TAB PO SCH (20:21)
[2022-08-31 05:52] LABS: #Eosinphils 0.3 thou/uL (0.0-0.7); #Lymphocytes 1.8 thou/uL (1.20-3.40); #Monocytes 0.7 thou/uL (0.11-0.59); #Neutrophils 3.7 thou/uL (1.40-6.50); %Basophils 0.7 % (0.0-1.0); %Eosinophils 4.6 % (0.0-10.0); %Lymphocytes 27.7 % (21.0-51.0); %Monocytes 9.9 % (0.0-10.0); %Neutrophils 57.1 % (42.0-75.0); Hemoglobin 12.6 g/dL (12.0-16.0); Mean Corpuscular HGB CONC 31.8 g/dL (32.0-36.0); Mean Corpuscular Hemoglobin 27.6 pg (27.0-31.0); Mean Platelet Volume 8.2 fL (7.4-10.4); Platelet Count 195 10x3/uL (130-400); RBC Distribution Width 12.6 % (11.5-14.5); Red Blood Cell (RBC) Count 4.54 mill/uL (4.20-5.40); White Blood Cell (WBC) Count 6.6 10x3/uL (4.8-10.8)
[2022-08-31 06:14] LABS: Anion Gap 11 mmol/L (10-20); BUN (Urea Nitrogen) 15 mg/dL (9.8-20.1); Calc. Creatinine Clearance 82 mL/min (70-130); Calcium 9.4 mg/dL (7.8-10.44); Carbon Dioxide 26 mmol/L (23-31); Chloride 101 mmol/L (98-107); Estimated GFR 89; Glucose 92 mg/dL (83-110); Potassium 3.7 mmol/L (3.5-5.1); Sodium 134 mmol/L (136-145)
[2022-08-31] MEDS: Valsartan 80 MG TAB PO SCH (08:54)
[2022-08-31] MEDS: Triamcinolone 0.1% Dental Paste 5 GM TUBE TOP SCH ×2 (08:54→20:51)
[2022-08-31] MEDS: Atenolol 50 MG TAB PO SCH (08:55)
[2022-08-31] MEDS: Aspirin Chewable 81 MG TAB PO SCH (08:55)
[2022-08-31] MEDS: Potassium Chloride 10 MEQ TAB PO SCH ×2 (08:55→17:05)
[2022-08-31] MEDS: Enoxaparin Sodium 40 MG/0.4 ML SYRINGE SC SCH (08:56)
[2022-08-31] MEDS: FLUoxetine HCl 20 MG CAP PO SCH (08:56)
[2022-08-31] MEDS: Chlorthalidone 25 MG TAB PO SCH (08:56)
[2022-08-31] MEDS: Amantadine HCl 100 mg Capsule PO SCH ×2 (08:56→20:49)
[2022-08-31] MEDS: Carbidopa/Levodopa [Carbidopa-Levo Er 25-100 Tab] PO SCH ×3 (08:57→20:49)
[2022-08-31] MEDS: levETIRAcetam 500 MG/5 ML VIAL SLOW IVP SCH (09:01)
[2022-08-31] MEDS ORDERED: Sodium Chloride 0.9% 500 ML IV SCH (12:45)
[2022-08-31] MEDS: NS 0.9% w/ 20 MEQ KCL 1,000 ML/1,000 ML BAG IV SCH (14:12)
[2022-08-31] MEDS ORDERED: Polyethylene Glycol 3350 17 GM Packet PO PRN (18:54)
[2022-08-31] MEDS: Atorvastatin Calcium 40 MG TAB PO SCH (20:49)
[2022-08-31] MEDS: levETIRAcetam 500 MG TAB PO SCH (20:49)
[2022-08-31] MEDS: Nystatin Powder 15 GM BOT TOP SCH (20:50)
[2022-08-31 22:03] LABS: Bacteria/HPF 4+ HPF (None Seen); Bilirubin Negative (Negative); Blood, Urine Trace (Negative); CAUTI Indications for Culture Alt mental st,lethar; Clarity Turbid (Clear); Glucose, Urine (Dipstick) Normal (Negative); Ketone, Urine Negative (Negative); Leukocyte 500 Leu/uL (Negative); Nitrite 1+ (Negative); Protein, Urine (Dipstick) Negative (Neg-Trace); RBC/HPF 0-3 HPF (0-3); Renal Epithelial 0-3 HPF (None Seen); Specific Gravity, Urine 1.005 (1.002-1.036); Squamous Epithelial 0-3 HPF (0-3); Urobilinogen Normal mg/dL (Less than 2); WBC/HPF Greater than 50 HPF (0-3)
[2022-08-31 22:06] LABS: Urine Culture Reflex Yes Yes
[2022-08-31] MEDS: cefTRIAXone\\ROCEPHIN 1 GM in Sodium Chloride 0.9% 100 ML IVPB SCH (23:15)
[2022-09-01] MEDS: NS 0.9% w/ 20 MEQ KCL 1,000 ML/1,000 ML BAG IV SCH (04:47)
[2022-09-01 06:13] LABS: #Basophils 0.1 thou/uL (0.0-0.2); #Eosinphils 0.3 thou/uL (0.0-0.7); #Lymphocytes 1.5 thou/uL (1.20-3.40); #Monocytes 0.7 thou/uL (0.11-0.59); #Neutrophils 4.8 thou/uL (1.40-6.50); %Basophils 0.7 % (0.0-1.0); %Eosinophils 3.5 % (0.0-10.0); %Monocytes 8.9 % (0.0-10.0); %Neutrophils 65.9 % (42.0-75.0); Hemoglobin 12.2 g/dL (12.0-16.0); Mean Corpuscular HGB CONC 30.1 g/dL (32.0-36.0); Mean Corpuscular Hemoglobin 26.1 pg (27.0-31.0); Mean Corpuscular Volume 86.6 fl (78.0-98.0); Mean Platelet Volume 8.7 fL (7.4-10.4); Platelet Count 175 10x3/uL (130-400); RBC Distribution Width 12.8 % (11.5-14.5); Red Blood Cell (RBC) Count 4.69 mill/uL (4.20-5.40); White Blood Cell (WBC) Count 7.3 10x3/uL (4.8-10.8)
[2022-09-01 06:34] LABS: Anion Gap 12 mmol/L (10-20); BUN (Urea Nitrogen) 14 mg/dL (9.8-20.1); Calc. Creatinine Clearance 81 mL/min (70-130); Calcium 9.1 mg/dL (7.8-10.44); Carbon Dioxide 24 mmol/L (23-31); Chloride 102 mmol/L (98-107); Estimated GFR 88; Glucose 83 mg/dL (83-110); Potassium 3.6 mmol/L (3.5-5.1); Sodium 134 mmol/L (136-145)
[2022-09-01] MEDS: Aspirin Chewable 81 MG TAB PO SCH (08:57)
[2022-09-01] MEDS: levETIRAcetam 500 MG TAB PO SCH ×2 (08:57→20:58)
[2022-09-01] MEDS: Enoxaparin Sodium 40 MG/0.4 ML SYRINGE SC SCH (08:57)
[2022-09-01] MEDS: Atenolol 50 MG TAB PO SCH (08:57)
[2022-09-01] MEDS: Potassium Chloride 10 MEQ TAB PO SCH ×2 (08:58→16:30)
[2022-09-01] MEDS: FLUoxetine HCl 20 MG CAP PO SCH (08:58)
[2022-09-01] MEDS: Carbidopa/Levodopa [Carbidopa-Levo Er 25-100 Tab] PO SCH ×3 (08:58→21:10)
[2022-09-01] MEDS: Amantadine HCl 100 mg Capsule PO SCH ×2 (08:58→20:58)
[2022-09-01] MEDS: Triamcinolone 0.1% Dental Paste 5 GM TUBE TOP SCH ×2 (08:58→21:08)
[2022-09-01] MEDS: Nystatin Powder 15 GM BOT TOP SCH ×2 (09:00→21:08)
[2022-09-01] MEDS: Atorvastatin Calcium 40 MG TAB PO SCH (20:58)
[2022-09-02] MEDS: cefTRIAXone\\ROCEPHIN 1 GM in Sodium Chloride 0.9% 100 ML IVPB SCH (00:18)
[2022-09-02 05:55] LABS: Phosphorus 3.5 mg/dL (2.3-4.7)
[2022-09-02 05:56] LABS: #Basophils 0.1 thou/uL (0.0-0.2); #Eosinphils 0.3 thou/uL (0.0-0.7); #Lymphocytes 1.7 thou/uL (1.20-3.40); #Monocytes 0.6 thou/uL (0.11-0.59); #Neutrophils 2.6 thou/uL (1.40-6.50); %Basophils 1.2 % (0.0-1.0); %Eosinophils 5.2 % (0.0-10.0); %Monocytes 10.6 % (0.0-10.0); Hemoglobin 11.9 g/dL (12.0-16.0); Mean Corpuscular HGB CONC 29.6 g/dL (32.0-36.0); Mean Corpuscular Hemoglobin 26.2 pg (27.0-31.0); Mean Corpuscular Volume 88.5 fl (78.0-98.0); Platelet Count 174 10x3/uL (130-400); RBC Distribution Width 12.8 % (11.5-14.5); Red Blood Cell (RBC) Count 4.55 mill/uL (4.20-5.40); White Blood Cell (WBC) Count 5.2 10x3/uL (4.8-10.8)
[2022-09-02 05:58] LABS: Anion Gap 12 mmol/L (10-20); BUN (Urea Nitrogen) 12 mg/dL (9.8-20.1); Calc. Creatinine Clearance 82 mL/min (70-130); Carbon Dioxide 24 mmol/L (23-31); Chloride 106 mmol/L (98-107); Estimated GFR 89; Glucose 90 mg/dL (83-110); Magnesium 1.7 mg/dL (1.6-2.6); Potassium 3.9 mmol/L (3.5-5.1); Sodium 138 mmol/L (136-145)
[2022-09-02] MEDS ORDERED: Nitrofurantoin Monohyd/M-Cryst 100 MG CAP PO SCH (09:00)
[2022-09-02] MEDS: Enoxaparin Sodium 40 MG/0.4 ML SYRINGE SC SCH (09:09)
[2022-09-02] MEDS: Atenolol 50 MG TAB PO SCH (09:09)
[2022-09-02] MEDS: Aspirin Chewable 81 MG TAB PO SCH (09:09)
[2022-09-02] MEDS: FLUoxetine HCl 20 MG CAP PO SCH (09:09)
[2022-09-02] MEDS: Amantadine HCl 100 mg Capsule PO SCH (09:09)
[2022-09-02] MEDS: Nystatin Powder 15 GM BOT TOP SCH (09:10)
[2022-09-02] MEDS: levETIRAcetam 500 MG TAB PO SCH (09:10)
[2022-09-02] MEDS: Triamcinolone 0.1% Dental Paste 5 GM TUBE TOP SCH (09:11)
[2022-09-02] MEDS: Potassium Chloride 10 MEQ TAB PO SCH ×2 (09:17→16:23)
[2022-09-02] MEDS ORDERED: Carbidopa/Levodopa [Carbidopa-Levo Er 25-100 Tab] PO SCH ×2 (10:30→15:00)
[2022-09-02] MEDS: Carbidopa/Levodopa [Carbidopa-Levo Er 25-100 Tab] PO SCH (10:43)
[2022-09-02 11:45] VITALS: BP 156/97; TEMP 97.6
== END 2022-09-02 18:55 | DRG 689 ==
LOC: ERS 11:21 → ERHOLD 15:39 → NEURO 17:47 → OBSVTOIN 08-29 12:06
PROVIDERS: ADMIT Internal Medicine; ATTEND Internal Medicine
DX: N39.0 Urinary tract infection, site not specified (principal); G93.41 Metabolic encephalopathy; S72.142A Displaced intertrochanteric fracture of left femur, initial encounter for closed fracture; G45.9 Transient cerebral ischemic attack, unspecified; E87.1 Hypo-osmolality and hyponatremia; Z16.29 Resistance to other single specified antibiotic; Z20.822 Contact with and (suspected) exposure to COVID-19; G20 Parkinson's disease; I10 Essential (primary) hypertension; D64.9 Anemia, unspecified; G62.9 Polyneuropathy, unspecified; Z96.653 Presence of artificial knee joint, bilateral; G93.89 Other specified disorders of brain; W19.XXXA Unspecified fall, initial encounter; Z88.5 Allergy status to narcotic agent; Z88.0 Allergy status to penicillin; Z79.899 Other long term (current) drug therapy; Z90.710 Acquired absence of both cervix and uterus; Z90.49 Acquired absence of other specified parts of digestive tract; I35.0 Nonrheumatic aortic (valve) stenosis; B96.20 Unspecified Escherichia coli [E. coli] as the cause of diseases classified elsewhere
CPT/HCPCS: 36415; 51701; 70450; 70551; 71045; 80048; 80053; 80061; 81001; 81003; 83735; 84100; 84484; 85025; 87077; 87086; 87186; 93005; 93306; 95712; 95819; 95957; G0378; J0696; J1650; J1953; J3480; J3490; J7030; U0002

== ENCOUNTER 2022-09-24 12:17 | Emergency (ER) | payer MEDICARE, BC ==
[2022-09-24 14:03] LABS: ALT (SGPT) Less than 7 U/L (8-55); AST (SGOT) 16 U/L (5-34); Albumin 3.8 g/dL (3.4-4.8); Alkaline Phosphatase 89 U/L (40-110); Anion Gap 15 mmol/L (10-20); BUN (Urea Nitrogen) 13 mg/dL (9.8-20.1); Bilirubin, Total 0.9 mg/dL (0.2-1.2); Calc. Creatinine Clearance 0 mL/min (70-130); Calcium 9.9 mg/dL (7.8-10.44); Carbon Dioxide 22 mmol/L (23-31); Chloride 103 mmol/L (98-107); Estimated GFR 89; Globulin 3.8 g/dL (2.4-3.5); Glucose 83 mg/dL (83-110); Lipase 12 U/L (8-78); Potassium 3.9 mmol/L (3.5-5.1); Protein, Total 7.6 g/dL (5.8-8.1); Sodium 136 mmol/L (136-145)
[2022-09-24 14:25] LABS: #Basophils 0.1 thou/uL (0.0-0.2); #Eosinphils 0.2 thou/uL (0.0-0.7); #Lymphocytes 1.9 thou/uL (1.20-3.40); #Monocytes 0.7 thou/uL (0.11-0.59); #Neutrophils 4.6 thou/uL (1.40-6.50); %Basophils 0.7 % (0.0-1.0); %Lymphocytes 25.3 % (21.0-51.0); %Monocytes 9.4 % (0.0-10.0); %Neutrophils 61.7 % (42.0-75.0); Hemoglobin 13.8 g/dL (12.0-16.0); Mean Corpuscular HGB CONC 33.3 g/dL (32.0-36.0); Mean Corpuscular Hemoglobin 28.2 pg (27.0-31.0); Mean Corpuscular Volume 84.6 fl (78.0-98.0); Mean Platelet Volume 8.1 fL (7.4-10.4); Platelet Count 227 10x3/uL (130-400); RBC Distribution Width 12.6 % (11.5-14.5); White Blood Cell (WBC) Count 7.5 10x3/uL (4.8-10.8)
[2022-09-24] MEDS ORDERED: cefTRIAXone\\ROCEPHIN 1 GM VIAL ONE (15:08)
[2022-09-24 15:57] LABS: SARS-CoV-2 NAA Rapid Test Not Detected (NotDetected)
[2022-09-24 16:26] LABS: Bilirubin Negative (Negative); Blood, Urine Negative (Negative); Clarity Clear (Clear); Glucose, Urine (Dipstick) Normal (Negative); Ketone, Urine Negative (Negative); Leukocyte Negative Leu/uL (Negative); Nitrite Negative (Negative); Protein, Urine (Dipstick) Negative (Neg-Trace); Specific Gravity, Urine 1.013 (1.002-1.036); Urobilinogen Normal mg/dL (Less than 2)
== END 2022-09-24 17:50 ==
LOC: ERS 12:17
DX: N30.00 Acute cystitis without hematuria (principal); R53.1 Weakness; I10 Essential (primary) hypertension; D64.9 Anemia, unspecified; G20 Parkinson's disease; Z79.899 Other long term (current) drug therapy; Z20.822 Contact with and (suspected) exposure to COVID-19
CPT/HCPCS: 0240U; 51701; 70450; 71045; 81003; 83605; 83690; 84484; 87040; 87086; 93005; 96361; 96365; 99285; 36415; 80053; 84443; 85025; J0696

== ENCOUNTER 2022-11-06 09:04 | Inpatient (IN) | payer MEDICARE, BC ==
[2022-11-06 09:28] LABS: #Basophils 0.1 thou/uL (0.0-0.2); #Eosinphils 0.5 thou/uL (0.0-0.7); #Lymphocytes 1.6 thou/uL (1.20-3.40); #Monocytes 0.7 thou/uL (0.11-0.59); #Neutrophils 7.7 thou/uL (1.40-6.50); %Basophils 0.5 % (0.0-1.0); %Eosinophils 4.6 % (0.0-10.0); %Lymphocytes 15.2 % (21.0-51.0); %Monocytes 6.2 % (0.0-10.0); %Neutrophils 73.4 % (42.0-75.0); Hemoglobin 11.4 g/dL (12.0-16.0); Mean Corpuscular HGB CONC 30.9 g/dL (32.0-36.0); Mean Corpuscular Hemoglobin 25.9 pg (27.0-31.0); Mean Platelet Volume 8.3 fL (7.4-10.4); Platelet Count 300 10x3/uL (130-400); RBC Distribution Width 14.4 % (11.5-14.5); White Blood Cell (WBC) Count 10.5 10x3/uL (4.8-10.8)
[2022-11-06 09:42] LABS: INR-International Normal Ratio 1.3; PTT 35.8 sec (22.9-36.1); Prothrombin Time 16.2 sec (12.0-14.7)
[2022-11-06 09:49] LABS: ALT (SGPT) 18 U/L (8-55); AST (SGOT) 28 U/L (5-34); Albumin 3.3 g/dL (3.4-4.8); Alkaline Phosphatase 101 U/L (40-110); Anion Gap 15 mmol/L (10-20); BUN (Urea Nitrogen) 21 mg/dL (9.8-20.1); Bilirubin, Total 0.5 mg/dL (0.2-1.2); Calc. Creatinine Clearance 0 mL/min (70-130); Carbon Dioxide 23 mmol/L (23-31); Chloride 105 mmol/L (98-107); Estimated GFR 89; Globulin 3.9 g/dL (2.4-3.5); Glucose 99 mg/dL (83-110); Potassium 4.1 mmol/L (3.5-5.1); Protein, Total 7.2 g/dL (5.8-8.1); Sodium 139 mmol/L (136-145)
[2022-11-06] MEDS ORDERED: levETIRAcetam 500 MG/5 ML VIAL ONE (10:55)
[2022-11-06] MEDS ORDERED: Aspirin 81 mg Enteric Coated Tablet PO SCH (11:45)
[2022-11-06 11:46] LABS: Bilirubin Negative (Negative); Blood, Urine Trace (Negative); Clarity Turbid (Clear); Glucose, Urine (Dipstick) Normal (Negative); Ketone, Urine Negative (Negative); Leukocyte 500 Leu/uL (Negative); Nitrite Negative (Negative); Protein, Urine (Dipstick) 10 mg/dL (Neg-Trace); Specific Gravity, Urine 1.033 (1.002-1.036); Urobilinogen Normal mg/dL (Less than 2); WBC/HPF Greater than 50 HPF (0-3)
[2022-11-06 11:55] LABS: Bacteria/HPF 2+ HPF (None Seen)
[2022-11-06] MEDS ORDERED: Iopamidol-370 76% 500 ML 1 ML ONE (13:46)
[2022-11-06] MEDS ORDERED: Gabapentin 300 MG CAP PO SCH (14:00)
[2022-11-06] MEDS ORDERED: Meropenem 1 GM in Sodium Chloride 0.9% 100 ML IVPB SCH (14:45)
[2022-11-06 15:20] LABS: SARS-CoV-2 NAA Rapid Test Not Detected (NotDetected)
[2022-11-06 16:22] VITALS: BMI 32.1
[2022-11-06] MEDS ORDERED: Lorazepam 2 MG/ML VIAL SLOW IVP PRN (19:51)
[2022-11-06] MEDS: levETIRAcetam 500 MG/5 ML VIAL SLOW IVP SCH (20:18)
[2022-11-06] MEDS: Atorvastatin Calcium 40 MG TAB PO SCH (20:28)
[2022-11-06] MEDS ORDERED: levETIRAcetam in NS 1,000 MG in Premix Bag 1 BAG IVPB SCH (21:00)
[2022-11-07] MEDS ORDERED: Acetaminophen 650 MG Suppository PR PRN (00:21)
[2022-11-07] MEDS ORDERED: Acetaminophen 500 MG TAB PO PRN (00:21)
[2022-11-07] MEDS ORDERED: Dextrose 50% Abboject 50 ML SYRINGE SLOW IVP PRN (00:22)
[2022-11-07] MEDS ORDERED: Dextrose 5% in Water 1,000 ML IV PRN (00:22)
[2022-11-07] MEDS: Meropenem 1 GM in Sodium Chloride 0.9% 100 ML IVPB SCH ×3 (00:25→16:48)
[2022-11-07] MEDS: Dextrose 5 % And 0.9 % NaCl 1,000 ML IV SCH ×2 (00:31→12:25)
[2022-11-07 08:12] LABS: #Basophils 0.1 thou/uL (0.0-0.2); #Eosinphils 0.3 thou/uL (0.0-0.7); #Lymphocytes 1.7 thou/uL (1.20-3.40); #Monocytes 0.5 thou/uL (0.11-0.59); #Neutrophils 2.7 thou/uL (1.40-6.50); %Basophils 1.2 % (0.0-1.0); %Eosinophils 5.9 % (0.0-10.0); %Lymphocytes 32.2 % (21.0-51.0); %Monocytes 9.7 % (0.0-10.0); %Neutrophils 50.9 % (42.0-75.0); Mean Corpuscular HGB CONC 31.7 g/dL (32.0-36.0); Mean Corpuscular Hemoglobin 26.8 pg (27.0-31.0); Mean Corpuscular Volume 84.6 fl (78.0-98.0); Mean Platelet Volume 8.8 fL (7.4-10.4); Platelet Count 207 10x3/uL (130-400); RBC Distribution Width 14.6 % (11.5-14.5); Red Blood Cell (RBC) Count 3.75 mill/uL (4.20-5.40); White Blood Cell (WBC) Count 5.3 10x3/uL (4.8-10.8)
[2022-11-07 08:32] LABS: Anion Gap 13 mmol/L (10-20); BUN (Urea Nitrogen) 17 mg/dL (9.8-20.1); Calc. Creatinine Clearance 85 mL/min (70-130); Carbon Dioxide 23 mmol/L (23-31); Chloride 107 mmol/L (98-107); Estimated GFR 90; Glucose 86 mg/dL (83-110); Potassium 3.2 mmol/L (3.5-5.1); Sodium 140 mmol/L (136-145)
[2022-11-07] MEDS: levETIRAcetam 500 MG/5 ML VIAL SLOW IVP SCH ×2 (09:15→21:53)
[2022-11-07] MEDS: Aspirin 300 MG Suppository PR SCH (09:16)
[2022-11-07] MEDS: Aspirin 81 mg Enteric Coated Tablet PO SCH (09:17)
[2022-11-07] MEDS: Potassium Chloride 20 MEQ in Premix Bag 1 BAG IVPB SCH ×2 (10:24→12:25)
[2022-11-07] MEDS ORDERED: Methocarbamol 500 MG TAB PO PRN (15:46)
[2022-11-07] MEDS: Carbidopa/Levodopa 25-100 mg Tablet PO SCH ×2 (16:47→21:52)
[2022-11-07] MEDS ORDERED: Mirtazapine 15 MG Soltab PO SCH (21:00)
[2022-11-07] MEDS: Atorvastatin Calcium 40 MG TAB PO SCH (21:52)
[2022-11-07] MEDS: traMADol HCl 50 MG TAB PO SCH (21:52)
[2022-11-07] MEDS: Apixaban 5 MG TAB PO SCH (21:53)
[2022-11-08] MEDS: Meropenem 1 GM in Sodium Chloride 0.9% 100 ML IVPB SCH ×3 (00:40→09:43)
[2022-11-08] MEDS: Dextrose 5 % And 0.9 % NaCl 1,000 ML IV SCH (07:52)
[2022-11-08] MEDS ORDERED: Chlorthalidone 25 MG TAB PO SCH (09:00)
[2022-11-08 09:09] LABS: #Eosinphils 0.4 thou/uL (0.0-0.7); #Lymphocytes 1.7 thou/uL (1.20-3.40); #Monocytes 0.7 thou/uL (0.11-0.59); %Basophils 0.3 % (0.0-1.0); %Lymphocytes 19.7 % (21.0-51.0); %Monocytes 8.3 % (0.0-10.0); %Neutrophils 67.7 % (42.0-75.0); Hemoglobin 12.1 g/dL (12.0-16.0); Mean Corpuscular HGB CONC 32.1 g/dL (32.0-36.0); Mean Corpuscular Volume 84.2 fl (78.0-98.0); Mean Platelet Volume 8.6 fL (7.4-10.4); Platelet Count 159 10x3/uL (130-400); RBC Distribution Width 14.6 % (11.5-14.5); Red Blood Cell (RBC) Count 4.47 mill/uL (4.20-5.40); White Blood Cell (WBC) Count 8.9 10x3/uL (4.8-10.8)
[2022-11-08] MEDS: NIFEdipine XL 30 MG TAB PO SCH (09:23)
[2022-11-08] MEDS: Carbidopa/Levodopa 25-100 mg Tablet PO SCH ×4 (09:24→21:54)
[2022-11-08] MEDS: FLUoxetine HCl 20 MG CAP PO SCH ×2 (09:24→09:25)
[2022-11-08] MEDS: Aspirin 81 mg Enteric Coated Tablet PO SCH (09:25)
[2022-11-08] MEDS: Atenolol 50 MG TAB PO SCH (09:25)
[2022-11-08] MEDS: Folic Acid 1 MG TAB PO SCH (09:25)
[2022-11-08] MEDS: Apixaban 5 MG TAB PO SCH ×2 (09:25→21:56)
[2022-11-08] MEDS: traMADol HCl 50 MG TAB PO SCH (09:26)
[2022-11-08] MEDS: levETIRAcetam 500 MG/5 ML VIAL SLOW IVP SCH ×2 (09:26→21:55)
[2022-11-08 09:28] LABS: ALT (SGPT) Less than 7 U/L (8-55); AST (SGOT) 16 U/L (5-34); Albumin 2.7 g/dL (3.4-4.8); Alkaline Phosphatase 88 U/L (40-110); Anion Gap 10 mmol/L (10-20); BUN (Urea Nitrogen) 12 mg/dL (9.8-20.1); Bilirubin, Total 0.7 mg/dL (0.2-1.2); Calc. Creatinine Clearance 91 mL/min (70-130); Calcium 9.1 mg/dL (7.8-10.44); Carbon Dioxide 25 mmol/L (23-31); Chloride 108 mmol/L (98-107); Estimated GFR 91; Globulin 3.4 g/dL (2.4-3.5); Glucose 90 mg/dL (83-110); Magnesium 1.8 mg/dL (1.6-2.6); Phosphorus 2.6 mg/dL (2.3-4.7); Potassium 3.4 mmol/L (3.5-5.1); Protein, Total 6.1 g/dL (5.8-8.1); Sodium 140 mmol/L (136-145)
[2022-11-08] MEDS: Mupirocin 2% Ointment 22 GM Tube TOP SCH ×2 (09:28→09:44)
[2022-11-08 10:11] LABS: Hemoglobin A1c 5.2 % (4.0-6.0)
[2022-11-08] MEDS ORDERED: Potassium Chloride 20 MEQ TAB PO SCH (10:30)
[2022-11-08] MEDS: Aspirin 300 MG Suppository PR SCH (10:50)
[2022-11-08] MEDS ORDERED: Nystatin 500,000 UNITS/5 ML UDCUP SSW SCH ×2 (11:15→13:00)
[2022-11-08] MEDS: Acetaminophen 500 MG TAB PO SCH ×2 (12:22→17:32)
[2022-11-08] MEDS: Vancomycin HCl 125 MG/5 ML (BATCHED) UDCUP PO SCH ×2 (12:28→17:32)
[2022-11-08] MEDS: Potassium Chloride 20 MEQ in Premix Bag 1 BAG IVPB SCH ×2 (14:35→17:31)
[2022-11-08] MEDS: Nystatin 500,000 UNITS/5 ML UDCUP SSW SCH ×2 (17:32→21:54)
[2022-11-08] MEDS: Mirtazapine 15 MG Soltab PO SCH (21:54)
[2022-11-08] MEDS: Nystatin Ointment 15 GM TUBE TOP SCH (21:56)
[2022-11-08] MEDS: Atorvastatin Calcium 40 MG TAB PO SCH (21:56)
[2022-11-09] MEDS: Acetaminophen 500 MG TAB PO SCH ×4 (00:35→17:38)
[2022-11-09] MEDS: Vancomycin HCl 125 MG/5 ML (BATCHED) UDCUP PO SCH ×4 (00:36→17:37)
[2022-11-09 05:47] LABS: Anion Gap 6 mmol/L (10-20); BUN (Urea Nitrogen) 16 mg/dL (9.8-20.1); Calc. Creatinine Clearance 85 mL/min (70-130); Carbon Dioxide 24 mmol/L (23-31); Chloride 110 mmol/L (98-107); Estimated GFR 90; Glucose 99 mg/dL (83-110); Magnesium 1.6 mg/dL (1.6-2.6); Potassium 3.5 mmol/L (3.5-5.1); Sodium 136 mmol/L (136-145)
[2022-11-09] MEDS: Aspirin 81 mg Enteric Coated Tablet PO SCH (09:15)
[2022-11-09] MEDS: Apixaban 5 MG TAB PO SCH ×2 (09:15→20:26)
[2022-11-09] MEDS: Carbidopa/Levodopa 25-100 mg Tablet PO SCH ×4 (09:16→20:26)
[2022-11-09] MEDS: Folic Acid 1 MG TAB PO SCH (09:16)
[2022-11-09] MEDS: levETIRAcetam 500 MG/5 ML VIAL SLOW IVP SCH (09:16)
[2022-11-09] MEDS: Atenolol 50 MG TAB PO SCH (09:16)
[2022-11-09] MEDS: Nystatin 500,000 UNITS/5 ML UDCUP SSW SCH ×4 (09:17→20:24)
[2022-11-09] MEDS: NIFEdipine XL 30 MG TAB PO SCH (09:17)
[2022-11-09] MEDS ORDERED: FLUoxetine HCl 20 MG CAP PO SCH (09:30)
[2022-11-09] MEDS ORDERED: Magnesium 2 GM/50 ML(in water) 2 GM in Premix Bag 1 BAG IVPB SCH (12:00)
[2022-11-09] MEDS ORDERED: Potassium Chloride 20 MEQ in Premix Bag 1 BAG IVPB SCH (12:15)
[2022-11-09] MEDS: Mupirocin 2% Ointment 22 GM Tube TOP SCH (12:36)
[2022-11-09] MEDS: Nystatin Ointment 15 GM TUBE TOP SCH ×2 (12:39→20:26)
[2022-11-09] MEDS: levETIRAcetam 500 MG TAB PO SCH (20:25)
[2022-11-09] MEDS: Mirtazapine 15 MG Soltab PO SCH (20:25)
[2022-11-09] MEDS: Atorvastatin Calcium 40 MG TAB PO SCH (20:26)
[2022-11-10] MEDS: Acetaminophen 500 MG TAB PO SCH ×4 (00:24→21:09)
[2022-11-10] MEDS: Vancomycin HCl 125 MG/5 ML (BATCHED) UDCUP PO SCH ×4 (00:24→18:41)
[2022-11-10 06:37] LABS: Anion Gap 11 mmol/L (10-20); BUN (Urea Nitrogen) 15 mg/dL (9.8-20.1); Calc. Creatinine Clearance 91 mL/min (70-130); Calcium 8.9 mg/dL (7.8-10.44); Carbon Dioxide 19 mmol/L (23-31); Chloride 107 mmol/L (98-107); Estimated GFR 91; Glucose 84 mg/dL (83-110); Magnesium 1.9 mg/dL (1.6-2.6); Sodium 133 mmol/L (136-145)
[2022-11-10] MEDS: Aspirin 81 mg Enteric Coated Tablet PO SCH (09:30)
[2022-11-10] MEDS: Mupirocin 2% Ointment 22 GM Tube TOP SCH (09:31)
[2022-11-10] MEDS: Nystatin Ointment 15 GM TUBE TOP SCH ×2 (09:35→21:09)
[2022-11-10] MEDS: Apixaban 5 MG TAB PO SCH ×2 (09:36→21:09)
[2022-11-10] MEDS: levETIRAcetam 500 MG TAB PO SCH ×2 (09:36→21:09)
[2022-11-10] MEDS: Carbidopa/Levodopa 25-100 mg Tablet PO SCH ×4 (09:36→21:09)
[2022-11-10] MEDS: FLUoxetine HCl 20 MG CAP PO SCH (09:36)
[2022-11-10] MEDS: Nystatin 500,000 UNITS/5 ML UDCUP SSW SCH ×4 (09:36→21:10)
[2022-11-10] MEDS: Folic Acid 1 MG TAB PO SCH (09:37)
[2022-11-10] MEDS: Atenolol 25 MG TAB PO SCH (09:37)
[2022-11-10] MEDS: Mirtazapine 15 MG Soltab PO SCH (21:09)
[2022-11-10] MEDS: Atorvastatin Calcium 40 MG TAB PO SCH (21:09)
[2022-11-11] MEDS: Vancomycin HCl 125 MG/5 ML (BATCHED) UDCUP PO SCH ×3 (00:14→12:13)
[2022-11-11 06:30] LABS: Anion Gap 12 mmol/L (10-20); BUN (Urea Nitrogen) 20 mg/dL (9.8-20.1); Calc. Creatinine Clearance 85 mL/min (70-130); Calcium 9.2 mg/dL (7.8-10.44); Carbon Dioxide 25 mmol/L (23-31); Chloride 103 mmol/L (98-107); Estimated GFR 90; Glucose 86 mg/dL (83-110); Magnesium 1.9 mg/dL (1.6-2.6); Potassium 3.8 mmol/L (3.5-5.1); Sodium 136 mmol/L (136-145)
[2022-11-11] MEDS: FLUoxetine HCl 20 MG CAP PO SCH (10:31)
[2022-11-11] MEDS: Nystatin Ointment 15 GM TUBE TOP SCH (10:31)
[2022-11-11] MEDS: Mupirocin 2% Ointment 22 GM Tube TOP SCH (10:31)
[2022-11-11] MEDS: levETIRAcetam 500 MG TAB PO SCH (10:32)
[2022-11-11] MEDS: Acetaminophen 500 MG TAB PO SCH (10:32)
[2022-11-11] MEDS: Aspirin 81 mg Enteric Coated Tablet PO SCH (10:33)
[2022-11-11] MEDS: Nystatin 500,000 UNITS/5 ML UDCUP SSW SCH ×2 (10:33→13:35)
[2022-11-11] MEDS: Folic Acid 1 MG TAB PO SCH (10:33)
[2022-11-11] MEDS: Apixaban 5 MG TAB PO SCH (10:33)
[2022-11-11] MEDS: Carbidopa/Levodopa 25-100 mg Tablet PO SCH ×2 (10:33→13:35)
[2022-11-11] MEDS: Atenolol 25 MG TAB PO SCH (10:34)
[2022-11-11 11:23] VITALS: TEMP 97.8
[2022-11-11 12:30] VITALS: BP 144/71
[2022-11-13] MEDS ORDERED: levETIRAcetam 500 MG TAB PO SCH ×2 (09:00)
[2022-11-20] MEDS ORDERED: levETIRAcetam 500 MG TAB PO SCH (09:00)
== END 2022-11-11 14:30 | DRG 371 ==
LOC: ERS 09:04 → ERHOLD 11:20 → NEURO 15:12 → OBSVTOIN 11-08 13:56
PROVIDERS: ADMIT Internal Medicine; ATTEND Internal Medicine
DX: A04.72 Enterocolitis due to Clostridium difficile, not specified as recurrent (principal); Z66 Do not resuscitate; Z20.822 Contact with and (suspected) exposure to COVID-19; G93.41 Metabolic encephalopathy; B37.0 Candidal stomatitis; N39.0 Urinary tract infection, site not specified; G20 Parkinson's disease; I10 Essential (primary) hypertension; Z96.653 Presence of artificial knee joint, bilateral; G62.9 Polyneuropathy, unspecified; I65.21 Occlusion and stenosis of right carotid artery; F39 Unspecified mood [affective] disorder; L98.8 Other specified disorders of the skin and subcutaneous tissue; L98.429 Non-pressure chronic ulcer of back with unspecified severity; L98.499 Non-pressure chronic ulcer of skin of other sites with unspecified severity; Z88.5 Allergy status to narcotic agent; Z88.0 Allergy status to penicillin; Z88.8 Allergy status to other drugs, medicaments and biological substances; Z87.440 Personal history of urinary (tract) infections; Z90.49 Acquired absence of other specified parts of digestive tract; Z79.899 Other long term (current) drug therapy; Z79.82 Long term (current) use of aspirin; Z79.01 Long term (current) use of anticoagulants; Z90.710 Acquired absence of both cervix and uterus
CPT/HCPCS: 36415; 36416; 51701; 51798; 70450; 70496; 70498; 70551; 71045; 76770; 80048; 80053; 80061; 81003; 81015; 83036; 83735; 84100; 84443; 84484; 85025; 85610; 85730; 87086; 87324; 87449; 87493; 93005; 94760; 95712; 95819; 95957; 96365; 96375; 96376; 97139; G0378; J1953; J2185; J3475; J3480; J3490; J7042; Q9967; U0002

== ENCOUNTER 2023-03-25 09:35 | Outpatient (CLI) | payer MEDICARE, BC | END 2023-03-25 09:36 | disposition home or self-care (01) | LOC: RAD 09:35 | PROVIDERS: ATTEND Family Medicine | DX: M25.561 Pain in right knee (principal); G20 Parkinson's disease ==

== ENCOUNTER 2023-03-25 20:50 | Emergency (ER) | payer MEDICARE, BC ==
[2023-03-25] MEDS ORDERED: traMADol HCl 50 MG TAB ONE (22:25)
[2023-03-26] MEDS ORDERED: traMADol HCl 50 MG TAB ONE (01:08)
[2023-03-26] MEDS ORDERED: Acetaminophen 500 MG TAB ONE (01:08)
== END 2023-03-26 01:19 | disposition home or self-care (01) ==
LOC: ERS 20:50
DX: M54.50 Low back pain, unspecified (principal); M25.551 Pain in right hip; I10 Essential (primary) hypertension
CPT/HCPCS: 72131; 72192

== ENCOUNTER 2023-04-06 08:23 | Outpatient (CLI) | payer MEDICARE, BC | END 2023-04-06 08:24 | disposition home or self-care (01) | LOC: NM 08:23 | DX: G20 Parkinson's disease (principal); R30.0 Dysuria; R25.8 Other abnormal involuntary movements | CPT/HCPCS: 78803; 81001; 87086; A9584 ×2 ==

== ENCOUNTER 2023-06-01 15:59 | Inpatient (IN) | payer MEDICARE, BC ==
[2023-06-01 18:35] LABS: #Basophils 0.1 thou/uL (0.0-0.2); #Eosinphils 0.1 thou/uL (0.0-0.7); #Monocytes 0.7 thou/uL (0.11-0.59); #Neutrophils 3.2 thou/uL (1.40-6.50); %Basophils 1.4 % (0.0-1.0); %Eosinophils 1.9 % (0.0-10.0); %Lymphocytes 26.2 % (21.0-51.0); %Monocytes 11.3 % (0.0-10.0); %Neutrophils 55.1 % (42.0-75.0); Hematocrit 35.3 % (36.0-47.0); Hemoglobin 10.9 g/dL (12.0-16.0); Mean Corpuscular HGB CONC 30.9 g/dL (32.0-36.0); Mean Corpuscular Volume 84.2 fl (78.0-98.0); Platelet Count 224 10x3/uL (130-400); RBC Distribution Width 16.2 % (11.5-14.5); Red Blood Cell (RBC) Count 4.19 mill/uL (4.20-5.40); White Blood Cell (WBC) Count 5.9 10x3/uL (4.8-10.8)
[2023-06-01 19:01] LABS: Troponin I Less than 0.010 ng/mL (< 0.028)
[2023-06-01 19:04] LABS: ALT (SGPT) Less than 7 U/L (8-55); AST (SGOT) 21 U/L (5-34); Albumin 3.7 g/dL (3.4-4.8); Alkaline Phosphatase 104 U/L (40-110); Anion Gap 13 mmol/L (10-20); BUN (Urea Nitrogen) 22 mg/dL (9.8-20.1); Bilirubin, Total 0.4 mg/dL (0.2-1.2); Calc. Creatinine Clearance 0 mL/min (70-130); Calcium 9.1 mg/dL (7.8-10.44); Carbon Dioxide 28 mmol/L (23-31); Chloride 104 mmol/L (98-107); Estimated GFR 67; Globulin 2.7 g/dL (2.4-3.5); Glucose 97 mg/dL (83-110); Potassium 4.3 mmol/L (3.5-5.1); Protein, Total 6.4 g/dL (5.8-8.1); Sodium 141 mmol/L (136-145)
[2023-06-01] MEDS ORDERED: Furosemide 40 MG/4 ML VIAL ONE (21:03)
[2023-06-01] MEDS ORDERED: Furosemide 40 MG TAB ONE (21:03)
[2023-06-02 01:09] VITALS: BMI 36.9
[2023-06-02 02:25] LABS: Troponin I Less than 0.010 ng/mL (< 0.028)
[2023-06-02 03:42] LABS: Troponin I Less than 0.010 ng/mL (< 0.028)
[2023-06-02 06:43] LABS: #Basophils 0.1 thou/uL (0.0-0.2); #Eosinphils 0.1 thou/uL (0.0-0.7); #Monocytes 0.7 thou/uL (0.11-0.59); #Neutrophils 2.8 thou/uL (1.40-6.50); %Eosinophils 2.1 % (0.0-10.0); %Lymphocytes 27.3 % (21.0-51.0); %Neutrophils 53.5 % (42.0-75.0); Hematocrit 35.2 % (36.0-47.0); Hemoglobin 10.7 g/dL (12.0-16.0); Mean Corpuscular HGB CONC 30.4 g/dL (32.0-36.0); Mean Corpuscular Hemoglobin 26.2 pg (27.0-31.0); Mean Corpuscular Volume 86.1 fl (78.0-98.0); Mean Platelet Volume 9.9 fL (7.4-10.4); Platelet Count 205 10x3/uL (130-400); RBC Distribution Width 16.3 % (11.5-14.5); Red Blood Cell (RBC) Count 4.09 mill/uL (4.20-5.40); White Blood Cell (WBC) Count 5.2 10x3/uL (4.8-10.8)
[2023-06-02 07:08] LABS: Anion Gap 13 mmol/L (10-20); BUN (Urea Nitrogen) 20 mg/dL (9.8-20.1); Calc. Creatinine Clearance 90 mL/min (70-130); Calcium 9.3 mg/dL (7.8-10.44); Carbon Dioxide 32 mmol/L (23-31); Chloride 103 mmol/L (98-107); Estimated GFR 76; Glucose 87 mg/dL (83-110); Magnesium 1.9 mg/dL (1.6-2.6); Potassium 3.6 mmol/L (3.5-5.1); Sodium 144 mmol/L (136-145)
[2023-06-02] MEDS ORDERED: Ondansetron ODT 4 MG TAB PO PRN (08:24)
[2023-06-02 09:17] LABS: #Basophils 0.1 thou/uL (0.0-0.2); #Eosinphils 0.1 thou/uL (0.0-0.7); #Monocytes 0.7 thou/uL (0.11-0.59); %Basophils 1.5 % (0.0-1.0); %Eosinophils 1.8 % (0.0-10.0); %Lymphocytes 26.5 % (21.0-51.0); %Monocytes 12.4 % (0.0-10.0); %Neutrophils 54.7 % (42.0-75.0); Hematocrit 34.6 % (36.0-47.0); Hemoglobin 10.8 g/dL (12.0-16.0); Mean Corpuscular HGB CONC 31.2 g/dL (32.0-36.0); Mean Corpuscular Hemoglobin 26.5 pg (27.0-31.0); Mean Corpuscular Volume 84.8 fl (78.0-98.0); Platelet Count 208 10x3/uL (130-400); RBC Distribution Width 16.3 % (11.5-14.5); Red Blood Cell (RBC) Count 4.08 mill/uL (4.20-5.40); White Blood Cell (WBC) Count 5.5 10x3/uL (4.8-10.8)
[2023-06-02 09:42] LABS: ALT (SGPT) 8 U/L (8-55); AST (SGOT) 19 U/L (5-34); Albumin 3.3 g/dL (3.4-4.8); Alkaline Phosphatase 98 U/L (40-110); Anion Gap 13 mmol/L (10-20); BUN (Urea Nitrogen) 20 mg/dL (9.8-20.1); Bilirubin, Total 0.5 mg/dL (0.2-1.2); Calc. Creatinine Clearance 95 mL/min (70-130); Calcium 9.2 mg/dL (7.8-10.44); Carbon Dioxide 31 mmol/L (23-31); Chloride 103 mmol/L (98-107); Estimated GFR 81; Glucose 86 mg/dL (83-110); Magnesium 1.9 mg/dL (1.6-2.6); Potassium 3.5 mmol/L (3.5-5.1); Protein, Total 6.3 g/dL (5.8-8.1); Sodium 143 mmol/L (136-145)
[2023-06-02] MEDS: Apixaban 5 MG TAB PO SCH ×2 (11:18→20:22)
[2023-06-02] MEDS: Aspirin 81 mg Enteric Coated Tablet PO SCH (11:19)
[2023-06-02] MEDS: Spironolactone 25 MG TAB PO SCH (11:19)
[2023-06-02] MEDS: Atenolol 25 MG TAB PO SCH (11:19)
[2023-06-02] MEDS: Carbidopa/Levodopa 25-100 mg Tablet PO SCH ×4 (11:19→20:22)
[2023-06-02] MEDS: levETIRAcetam 500 MG TAB PO SCH ×2 (11:19→20:22)
[2023-06-02] MEDS ORDERED: Furosemide 40 MG/4 ML VIAL SLOW IVP SCH (14:45)
[2023-06-02] MEDS: Atorvastatin Calcium 40 MG TAB PO SCH (20:22)
[2023-06-03] MEDS: Carbidopa/Levodopa 25-100 mg Tablet PO SCH ×4 (08:43→19:47)
[2023-06-03] MEDS: Furosemide 40 MG/4 ML VIAL SLOW IVP SCH (08:43)
[2023-06-03] MEDS: Apixaban 5 MG TAB PO SCH ×2 (08:44→19:46)
[2023-06-03] MEDS: Spironolactone 25 MG TAB PO SCH (08:44)
[2023-06-03] MEDS: Atenolol 25 MG TAB PO SCH (08:44)
[2023-06-03] MEDS: Aspirin 81 mg Enteric Coated Tablet PO SCH (08:44)
[2023-06-03] MEDS: levETIRAcetam 500 MG TAB PO SCH ×2 (08:45→19:47)
[2023-06-03] MEDS ORDERED: Gabapentin 300 MG CAP PO PRN (09:48)
[2023-06-03] MEDS ORDERED: Nystatin 100,000 Units/mL UDCUP SSW SCH (13:00)
[2023-06-03] MEDS: Nystatin 500,000 UNITS/5 ML UDCUP SSW SCH ×3 (13:04→19:48)
[2023-06-03] MEDS: Entacapone 200 mg Tablet PO SCH ×3 (13:04→19:48)
[2023-06-03] MEDS: Ipratropium/Albuterol 3 ML NEB NEB PRN (17:00)
[2023-06-03] MEDS: Mirtazapine 15 MG Soltab PO SCH (19:44)
[2023-06-03] MEDS: Atorvastatin Calcium 40 MG TAB PO SCH (19:47)
[2023-06-04] MEDS: Ipratropium/Albuterol 3 ML NEB NEB PRN ×2 (07:41→16:15)
[2023-06-04] MEDS: levETIRAcetam 500 MG TAB PO SCH ×2 (08:29→20:13)
[2023-06-04] MEDS: Entacapone 200 mg Tablet PO SCH ×4 (08:29→20:13)
[2023-06-04] MEDS: Nystatin 500,000 UNITS/5 ML UDCUP SSW SCH ×4 (08:29→20:15)
[2023-06-04] MEDS: Spironolactone 25 MG TAB PO SCH (08:30)
[2023-06-04] MEDS: Apixaban 5 MG TAB PO SCH (08:30)
[2023-06-04] MEDS: Atenolol 25 MG TAB PO SCH (08:30)
[2023-06-04] MEDS: Furosemide 40 MG/4 ML VIAL SLOW IVP SCH ×2 (08:31→15:29)
[2023-06-04] MEDS: Aspirin 81 mg Enteric Coated Tablet PO SCH (08:31)
[2023-06-04] MEDS: Carbidopa/Levodopa 25-100 mg Tablet PO SCH ×4 (08:31→20:12)
[2023-06-04] MEDS: Folic Acid 1 MG TAB PO SCH (08:31)
[2023-06-04] MEDS ORDERED: Communication Order-Pharmacy FS SCH (14:01)
[2023-06-04 14:59] LABS: Hematocrit 34.5 % (36.0-47.0); Hemoglobin 10.6 g/dL (12.0-16.0); Platelet Count 176 10x3/uL (130-400)
[2023-06-04] MEDS: Potassium Chloride 10 MEQ TAB PO SCH (17:50)
[2023-06-04] MEDS: Atorvastatin Calcium 40 MG TAB PO SCH (20:12)
[2023-06-04] MEDS: Mirtazapine 15 MG Soltab PO SCH (20:13)
[2023-06-04] MEDS: Guaifenesin DM 100-10/5 ML UDCUP PO PRN (20:15)
[2023-06-05] MEDS: Furosemide 40 MG/4 ML VIAL SLOW IVP SCH ×2 (06:12→14:10)
[2023-06-05 06:33] LABS: Anion Gap 11 mmol/L (10-20); BUN (Urea Nitrogen) 16 mg/dL (9.8-20.1); Calc. Creatinine Clearance 93 mL/min (70-130); Calcium 9.3 mg/dL (7.8-10.44); Carbon Dioxide 32 mmol/L (23-31); Chloride 101 mmol/L (98-107); Estimated GFR 84; Glucose 95 mg/dL (83-110); Magnesium 1.9 mg/dL (1.6-2.6); Potassium 3.6 mmol/L (3.5-5.1); Sodium 140 mmol/L (136-145)
[2023-06-05] MEDS: Atenolol 25 MG TAB PO SCH (09:03)
[2023-06-05] MEDS: Nystatin 500,000 UNITS/5 ML UDCUP SSW SCH ×4 (09:03→21:10)
[2023-06-05] MEDS: Potassium Chloride 10 MEQ TAB PO SCH (09:03)
[2023-06-05] MEDS: Aspirin 81 mg Enteric Coated Tablet PO SCH (09:03)
[2023-06-05] MEDS: levETIRAcetam 500 MG TAB PO SCH ×2 (09:03→21:05)
[2023-06-05] MEDS: Spironolactone 25 MG TAB PO SCH (09:04)
[2023-06-05] MEDS: Folic Acid 1 MG TAB PO SCH (09:04)
[2023-06-05] MEDS: Carbidopa/Levodopa 25-100 mg Tablet PO SCH ×4 (09:04→21:06)
[2023-06-05] MEDS: Entacapone 200 mg Tablet PO SCH ×4 (11:02→21:04)
[2023-06-05] MEDS: Guaifenesin DM 100-10/5 ML UDCUP PO PRN (14:10)
[2023-06-05] MEDS: Acetaminophen 325 MG TAB PO PRN (18:26)
[2023-06-05] MEDS: Atorvastatin Calcium 40 MG TAB PO SCH (21:04)
[2023-06-05] MEDS: Mirtazapine 15 MG Soltab PO SCH (21:08)
[2023-06-06] MEDS: Furosemide 40 MG/4 ML VIAL SLOW IVP SCH (04:47)
[2023-06-06 05:44] LABS: Anion Gap 16 mmol/L (10-20); BUN (Urea Nitrogen) 18 mg/dL (9.8-20.1); Calc. Creatinine Clearance 82 mL/min (70-130); Calcium 9.7 mg/dL (7.8-10.44); Carbon Dioxide 30 mmol/L (23-31); Chloride 98 mmol/L (98-107); Estimated GFR 72; Glucose 91 mg/dL (83-110); Magnesium 1.9 mg/dL (1.6-2.6); Potassium 3.9 mmol/L (3.5-5.1); Sodium 140 mmol/L (136-145)
[2023-06-06 06:45] LABS: Bilirubin Negative (Negative); Blood, Urine Negative (Negative); Clarity Clear (Clear); Glucose, Urine (Dipstick) Normal (Negative); Ketone, Urine Negative (Negative); Leukocyte Negative Leu/uL (Negative); Nitrite Negative (Negative); Protein, Urine (Dipstick) Negative (Neg-Trace); Specific Gravity, Urine 1.013 (1.002-1.036); Urobilinogen Normal mg/dL (Less than 2); pH, Urine 6.5 (5.0-9.0)
[2023-06-06] MEDS ORDERED: Potassium Chloride 20 MEQ TAB PO SCH (08:00)
[2023-06-06] MEDS: Aspirin 81 mg Enteric Coated Tablet PO SCH (10:38)
[2023-06-06] MEDS: Carbidopa/Levodopa 25-100 mg Tablet PO SCH ×4 (10:39→20:20)
[2023-06-06] MEDS: Atenolol 25 MG TAB PO SCH (10:39)
[2023-06-06] MEDS: Folic Acid 1 MG TAB PO SCH (10:40)
[2023-06-06] MEDS: levETIRAcetam 500 MG TAB PO SCH ×2 (10:40→20:20)
[2023-06-06] MEDS: Entacapone 200 mg Tablet PO SCH ×4 (10:40→20:20)
[2023-06-06] MEDS: Nystatin 500,000 UNITS/5 ML UDCUP SSW SCH ×4 (10:40→20:20)
[2023-06-06] MEDS: Spironolactone 25 MG TAB PO SCH (10:41)
[2023-06-06] MEDS: Ipratropium/Albuterol 3 ML NEB NEB PRN (19:50)
[2023-06-06] MEDS: Atorvastatin Calcium 40 MG TAB PO SCH (20:20)
[2023-06-06] MEDS: Guaifenesin DM 100-10/5 ML UDCUP PO PRN (20:50)
[2023-06-06] MEDS: Mirtazapine 15 MG Soltab PO SCH (21:08)
[2023-06-07 05:36] LABS: Hematocrit 34.4 % (36.0-47.0); Hemoglobin 10.7 g/dL (12.0-16.0); Platelet Count 164 10x3/uL (130-400)
[2023-06-07 06:03] LABS: Anion Gap 14 mmol/L (10-20); BUN (Urea Nitrogen) 21 mg/dL (9.8-20.1); Calc. Creatinine Clearance 85 mL/min (70-130); Calcium 9.4 mg/dL (7.8-10.44); Carbon Dioxide 29 mmol/L (23-31); Chloride 100 mmol/L (98-107); Estimated GFR 74; Glucose 92 mg/dL (83-110); Potassium 3.9 mmol/L (3.5-5.1); Sodium 139 mmol/L (136-145)
[2023-06-07] MEDS: Entacapone 200 mg Tablet PO SCH ×4 (09:15→21:06)
[2023-06-07] MEDS: Furosemide 40 MG TAB PO SCH (09:15)
[2023-06-07] MEDS: Folic Acid 1 MG TAB PO SCH (09:15)
[2023-06-07] MEDS: Carbidopa/Levodopa 25-100 mg Tablet PO SCH ×4 (09:15→21:06)
[2023-06-07] MEDS: Atenolol 25 MG TAB PO SCH (09:15)
[2023-06-07] MEDS: Potassium Bicarbonate/Cit Ac 20 MEQ TAB PO SCH (09:15)
[2023-06-07] MEDS: Aspirin 81 mg Enteric Coated Tablet PO SCH (09:15)
[2023-06-07] MEDS: Polyethylene Glycol 3350 17 GM Packet PO SCH (09:16)
[2023-06-07] MEDS: Nystatin 500,000 UNITS/5 ML UDCUP SSW SCH ×4 (09:16→21:06)
[2023-06-07] MEDS: levETIRAcetam 500 MG TAB PO SCH ×2 (09:16→21:06)
[2023-06-07] MEDS: Spironolactone 25 MG TAB PO SCH (09:16)
[2023-06-07] MEDS: Ipratropium/Albuterol 3 ML NEB NEB PRN (10:56)
[2023-06-07] MEDS ORDERED: Communication Order-Pharmacy FS SCH (12:00)
[2023-06-07] MEDS: Acetaminophen 325 MG TAB PO PRN (13:19)
[2023-06-07] MEDS ORDERED: traMADol HCl 50 MG TAB PO PRN (14:52)
[2023-06-07] MEDS: traMADol HCl 50 MG TAB PO PRN (21:05)
[2023-06-07] MEDS: Mirtazapine 15 MG Soltab PO SCH (21:06)
[2023-06-07] MEDS: Atorvastatin Calcium 40 MG TAB PO SCH (21:06)
[2023-06-08 05:57] LABS: Anion Gap 14 mmol/L (10-20); BUN (Urea Nitrogen) 25 mg/dL (9.8-20.1); Calc. Creatinine Clearance 95 mL/min (70-130); Calcium 9.5 mg/dL (7.8-10.44); Carbon Dioxide 27 mmol/L (23-31); Chloride 100 mmol/L (98-107); Estimated GFR 84; Glucose 102 mg/dL (83-110); Magnesium 1.9 mg/dL (1.6-2.6); Potassium 3.8 mmol/L (3.5-5.1); Sodium 137 mmol/L (136-145)
[2023-06-08] MEDS ORDERED: Sodium Chloride 0.9% 1,000 ML IV SCH ×2 (06:00→10:53)
[2023-06-08] MEDS: Folic Acid 1 MG TAB PO SCH (06:36)
[2023-06-08] MEDS: Atenolol 25 MG TAB PO SCH (06:36)
[2023-06-08] MEDS: Nystatin 500,000 UNITS/5 ML UDCUP SSW SCH ×4 (06:36→20:38)
[2023-06-08] MEDS: Carbidopa/Levodopa 25-100 mg Tablet PO SCH ×4 (06:36→20:29)
[2023-06-08] MEDS: Aspirin 81 mg Enteric Coated Tablet PO SCH (06:36)
[2023-06-08] MEDS: levETIRAcetam 500 MG TAB PO SCH ×2 (06:36→20:28)
[2023-06-08] MEDS: Entacapone 200 mg Tablet PO SCH ×4 (06:37→20:28)
[2023-06-08] MEDS ORDERED: Heparin 10,000 UNITS/ 10 ML VIAL ONE (07:42)
[2023-06-08] MEDS ORDERED: Lidocaine 1% (PF) 30 ML VIAL ONE (07:42)
[2023-06-08] MEDS ORDERED: Midazolam HCl 2 mg/2 ml Vial ONE (08:41)
[2023-06-08] MEDS ORDERED: fentaNYL 50 mcg/mL 1 mL Vial ONE (08:41)
[2023-06-08] MEDS ORDERED: Nitroglycerin 50 MG/250 ML BOT 0 ML ONE (08:41)
[2023-06-08] MEDS ORDERED: Iopamidol 370 76% 100 ML VIAL ONE (08:54)
[2023-06-08] MEDS ORDERED: EPINEPHrine 1 MG/10 ML Abboject SYRINGE ONE (08:55)
[2023-06-08] MEDS ORDERED: Atropine Sulfate 1 mg/10 ml Syringe ONE (08:55)
[2023-06-08] MEDS ORDERED: Furosemide 40 MG/4 ML VIAL ONE (09:21)
[2023-06-08] MEDS ORDERED: Protamine Sulfate 50 MG/5 ML VIAL ONE (10:26)
[2023-06-08] MEDS ORDERED: Sodium Chloride 0.9% 200 ML IV PRN (10:52)
[2023-06-08] MEDS ORDERED: Nitroglycerin 0.4 MG TAB (25 Tab Bottle) SL PRN (10:52)
[2023-06-08] MEDS: Spironolactone 25 MG TAB PO SCH (13:43)
[2023-06-08] MEDS: Furosemide 40 MG TAB PO SCH (13:43)
[2023-06-08] MEDS: Potassium Bicarbonate/Cit Ac 20 MEQ TAB PO SCH (13:43)
[2023-06-08] MEDS: Polyethylene Glycol 3350 17 GM Packet PO SCH (14:49)
[2023-06-08] MEDS: Acetaminophen 325 MG TAB PO PRN (20:24)
[2023-06-08] MEDS: Atorvastatin Calcium 40 MG TAB PO SCH (20:28)
[2023-06-08] MEDS: Mirtazapine 15 MG Soltab PO SCH (20:38)
[2023-06-09 07:18] LABS: Anion Gap 12 mmol/L (10-20); BUN (Urea Nitrogen) 26 mg/dL (9.8-20.1); Calc. Creatinine Clearance 90 mL/min (70-130); Calcium 9.5 mg/dL (7.8-10.44); Carbon Dioxide 28 mmol/L (23-31); Chloride 97 mmol/L (98-107); Estimated GFR 77; Glucose 94 mg/dL (83-110); Potassium 3.9 mmol/L (3.5-5.1); Sodium 133 mmol/L (136-145)
[2023-06-09] MEDS: Entacapone 200 mg Tablet PO SCH ×3 (08:10→15:37)
[2023-06-09] MEDS: Spironolactone 25 MG TAB PO SCH (08:10)
[2023-06-09] MEDS: levETIRAcetam 500 MG TAB PO SCH (08:10)
[2023-06-09] MEDS: Folic Acid 1 MG TAB PO SCH (08:10)
[2023-06-09] MEDS: Furosemide 40 MG TAB PO SCH (08:10)
[2023-06-09] MEDS: Aspirin 81 mg Enteric Coated Tablet PO SCH (08:11)
[2023-06-09] MEDS: Potassium Bicarbonate/Cit Ac 20 MEQ TAB PO SCH (08:11)
[2023-06-09] MEDS: Carbidopa/Levodopa 25-100 mg Tablet PO SCH ×3 (08:11→15:36)
[2023-06-09] MEDS: Polyethylene Glycol 3350 17 GM Packet PO SCH (08:11)
[2023-06-09] MEDS: Atenolol 25 MG TAB PO SCH (08:11)
[2023-06-09] MEDS: Nystatin 500,000 UNITS/5 ML UDCUP SSW SCH ×3 (08:11→15:37)
[2023-06-09] MEDS: traMADol HCl 50 MG TAB PO PRN ×2 (08:28→15:36)
[2023-06-09] MEDS ORDERED: Apixaban 2.5 MG TAB PO SCH (09:00)
[2023-06-09] MEDS ORDERED: Guaifenesin DM 100-10/5 ML UDCUP PO PRN (09:38)
[2023-06-09] MEDS: Ipratropium/Albuterol 3 ML NEB NEB PRN (10:45)
[2023-06-09 16:11] VITALS: BP 106/64; TEMP 97.7
== END 2023-06-09 16:35 | DRG 286 ==
LOC: ERS 15:59 → ERHOLD 23:48 → 2SW 23:49
PROVIDERS: ADMIT Student in an Organized Health Care Education/Training Program; ATTEND Internal Medicine
PROC: 4A023N8 Measurement of Cardiac Sampling and Pressure, Bilateral, Percutaneous Approach (ICD-10-PCS; principal; 2023-06-08)
PROC: 4A1239Z Monitoring of Cardiac Output, Percutaneous Approach (ICD-10-PCS; 2023-06-08)
PROC: B2101ZZ Fluoroscopy of Single Coronary Artery using Low Osmolar Contrast (ICD-10-PCS; 2023-06-08)
PROC: B2151ZZ Fluoroscopy of Left Heart using Low Osmolar Contrast (ICD-10-PCS; 2023-06-08)
DX: I13.0 Hypertensive heart and chronic kidney disease with heart failure and stage 1 through stage 4 chronic kidney disease, or unspecified chronic kidney disease (principal); I50.33 Acute on chronic diastolic (congestive) heart failure; E87.1 Hypo-osmolality and hyponatremia; G20 Parkinson's disease; Z96.653 Presence of artificial knee joint, bilateral; F32.A Depression, unspecified; I25.10 Atherosclerotic heart disease of native coronary artery without angina pectoris; E78.00 Pure hypercholesterolemia, unspecified; G62.9 Polyneuropathy, unspecified; E66.01 Morbid (severe) obesity due to excess calories; I08.3 Combined rheumatic disorders of mitral, aortic and tricuspid valves; N18.2 Chronic kidney disease, stage 2 (mild); E83.42 Hypomagnesemia; D63.8 Anemia in other chronic diseases classified elsewhere; Z90.49 Acquired absence of other specified parts of digestive tract; Z90.710 Acquired absence of both cervix and uterus; Z98.890 Other specified postprocedural states; Z88.5 Allergy status to narcotic agent; Z88.8 Allergy status to other drugs, medicaments and biological substances; Z88.0 Allergy status to penicillin; Z79.82 Long term (current) use of aspirin; Z79.899 Other long term (current) drug therapy; Z79.01 Long term (current) use of anticoagulants; Z86.718 Personal history of other venous thrombosis and embolism; Z68.36 Body mass index [BMI] 36.0-36.9, adult
CPT/HCPCS: 36415; 71046; 80048; 80053; 81003; 83735; 83880; 84484; 85014; 85018; 85025; 85049; 85347; 93005; 93010; 93306; 93460; 94640; 94760; 96374; 97139; 99152; C1751; C1769; C1894; J0171; J0461; J1644; J1650; J1940; J2001; J2250; J2720; J3010; J7050; J7620

== ENCOUNTER 2023-06-18 14:20 | Inpatient (IN) | payer MEDICARE, BC ==
[2023-06-18 14:57] LABS: #Basophils 0.1 thou/uL (0.0-0.2); #Eosinphils 0.3 thou/uL (0.0-0.7); #Monocytes 0.8 thou/uL (0.11-0.59); #Neutrophils 7.7 thou/uL (1.40-6.50); %Basophils 0.9 % (0.0-1.0); %Eosinophils 3.1 % (0.0-10.0); %Lymphocytes 11.7 % (21.0-51.0); %Monocytes 7.6 % (0.0-10.0); %Neutrophils 75.4 % (42.0-75.0); Hematocrit 27.8 % (36.0-47.0); Hemoglobin 9.2 g/dL (12.0-16.0); Mean Corpuscular HGB CONC 33.1 g/dL (32.0-36.0); Mean Corpuscular Volume 87.7 fl (78.0-98.0); Mean Platelet Volume 9.5 fL (7.4-10.4); Platelet Count 283 10x3/uL (130-400); RBC Distribution Width 15.2 % (11.5-14.5); Red Blood Cell (RBC) Count 3.17 mill/uL (4.20-5.40); White Blood Cell (WBC) Count 10.2 10x3/uL (4.8-10.8)
[2023-06-18 15:17] LABS: ALT (SGPT) Less than 7 U/L (8-55); AST (SGOT) 26 U/L (5-34); Albumin 3.1 g/dL (3.4-4.8); Alkaline Phosphatase 104 U/L (40-110); Anion Gap 15 mmol/L (10-20); BUN (Urea Nitrogen) 18 mg/dL (9.8-20.1); Bilirubin, Total 1.3 mg/dL (0.2-1.2); Calc. Creatinine Clearance 0 mL/min (70-130); Calcium 9.3 mg/dL (7.8-10.44); Carbon Dioxide 25 mmol/L (23-31); Chloride 97 mmol/L (98-107); Estimated GFR 66; Globulin 3.6 g/dL (2.4-3.5); Glucose 109 mg/dL (83-110); Protein, Total 6.7 g/dL (5.8-8.1); Sodium 133 mmol/L (136-145)
[2023-06-18] MEDS ORDERED: Cefepime 2 GM VIAL ONE (15:22)
[2023-06-18] MEDS ORDERED: Vancomycin (BATCH) 1.5 GM in Premix 1 BAG IVPB SCH (15:45)
[2023-06-18] MEDS ORDERED: Iopamidol-370 76% 500 ML MDV (1 ML CHARGE) ONE (16:03)
[2023-06-18 17:39] LABS: Bacteria/HPF None Seen HPF (None Seen); Bilirubin Negative (Negative); Blood, Urine Trace (Negative); CAUTI Indications for Culture Fever or rigors; Clarity Clear (Clear); Glucose, Urine (Dipstick) Normal (Negative); Ketone, Urine Negative (Negative); Leukocyte Negative Leu/uL (Negative); Nitrite Negative (Negative); Protein, Urine (Dipstick) Negative (Neg-Trace); RBC/HPF None Seen HPF (0-3); Specific Gravity, Urine 1.041 (1.002-1.036); Squamous Epithelial 0-3 HPF (0-3); WBC/HPF 0-3 HPF (0-3); pH, Urine 6.5 (5.0-9.0)
[2023-06-18 17:40] LABS: Urine Culture Reflex No No
[2023-06-18] MEDS ORDERED: Ondansetron ODT 4 MG TAB PO PRN (19:54)
[2023-06-18] MEDS ORDERED: Acetaminophen 325 MG TAB PO PRN (19:54)
[2023-06-18] MEDS ORDERED: traMADol HCl 50 MG TAB PO PRN (20:04)
[2023-06-18] MEDS ORDERED: Acetaminophen 500 MG TAB ONE (20:05)
[2023-06-18] MEDS: cefTRIAXone\\ROCEPHIN 2 GM in Sodium Chloride 0.9% 100 ML IVPB SCH (21:37)
[2023-06-18] MEDS: Gabapentin 300 MG CAP PO SCH (21:37)
[2023-06-18] MEDS: Atorvastatin Calcium 40 MG TAB PO SCH (21:37)
[2023-06-18] MEDS: levETIRAcetam 500 MG TAB PO SCH (21:38)
[2023-06-18] MEDS: Heparin 5,000 UNITS/ML VIAL SC SCH (21:39)
[2023-06-18] MEDS: metroNIDAZOLE 500 MG in Premix 1 BAG IVPB SCH (21:40)
[2023-06-19 00:30] VITALS: BMI 40.6
[2023-06-19] MEDS: metroNIDAZOLE 500 MG in Premix 1 BAG IVPB SCH ×3 (05:28→20:52)
[2023-06-19 06:14] LABS: #Basophils 0.1 thou/uL (0.0-0.2); #Eosinphils 0.4 thou/uL (0.0-0.7); #Monocytes 0.8 thou/uL (0.11-0.59); #Neutrophils 4.8 thou/uL (1.40-6.50); %Basophils 0.9 % (0.0-1.0); %Eosinophils 5.7 % (0.0-10.0); %Monocytes 10.7 % (0.0-10.0); %Neutrophils 64.2 % (42.0-75.0); Hematocrit 24.6 % (36.0-47.0); Mean Corpuscular HGB CONC 32.5 g/dL (32.0-36.0); Mean Corpuscular Hemoglobin 29.5 pg (27.0-31.0); Mean Platelet Volume 9.6 fL (7.4-10.4); Platelet Count 236 10x3/uL (130-400); RBC Distribution Width 15.5 % (11.5-14.5); Red Blood Cell (RBC) Count 2.71 mill/uL (4.20-5.40); White Blood Cell (WBC) Count 7.5 10x3/uL (4.8-10.8)
[2023-06-19 06:17] LABS: Mean Corpuscular Volume 90.8 fl (78.0-98.0)
[2023-06-19] MEDS: Carbidopa/Levodopa 25-100 mg Tablet PO SCH ×4 (06:30→18:15)
[2023-06-19 06:39] LABS: Anion Gap 11 mmol/L (10-20); BUN (Urea Nitrogen) 15 mg/dL (9.8-20.1); Calc. Creatinine Clearance 100 mL/min (70-130); Calcium 8.7 mg/dL (7.8-10.44); Carbon Dioxide 24 mmol/L (23-31); Chloride 103 mmol/L (98-107); Estimated GFR 87; Glucose 84 mg/dL (83-110); Potassium 3.2 mmol/L (3.5-5.1); Sodium 135 mmol/L (136-145)
[2023-06-19] MEDS: Folic Acid 1 MG TAB PO SCH (08:31)
[2023-06-19] MEDS: Heparin 5,000 UNITS/ML VIAL SC SCH ×3 (08:31→20:51)
[2023-06-19] MEDS: FLUoxetine HCl 20 MG CAP PO SCH (08:31)
[2023-06-19] MEDS: Aspirin 81 mg Enteric Coated Tablet PO SCH (08:31)
[2023-06-19] MEDS: Atenolol 25 MG TAB PO SCH (08:31)
[2023-06-19] MEDS ORDERED: Vancomycin (BATCH) 1.5 GM in Premix 1 BAG IVPB SCH (14:00)
[2023-06-19] MEDS: cefTRIAXone\\ROCEPHIN 2 GM in Sodium Chloride 0.9% 100 ML IVPB SCH (20:49)
[2023-06-19] MEDS: levETIRAcetam 500 MG TAB PO SCH (20:49)
[2023-06-19] MEDS: Gabapentin 300 MG CAP PO SCH (20:50)
[2023-06-19] MEDS: Atorvastatin Calcium 40 MG TAB PO SCH (20:50)
[2023-06-20] MEDS: traMADol HCl 50 MG TAB PO PRN ×2 (00:36→10:26)
[2023-06-20] MEDS: metroNIDAZOLE 500 MG in Premix 1 BAG IVPB SCH ×3 (05:44→21:09)
[2023-06-20] MEDS: Carbidopa/Levodopa 25-100 mg Tablet PO SCH ×4 (05:44→21:07)
[2023-06-20 06:44] LABS: #Basophils 0.1 thou/uL (0.0-0.2); #Eosinphils 0.4 thou/uL (0.0-0.7); #Monocytes 0.8 thou/uL (0.11-0.59); #Neutrophils 5.1 thou/uL (1.40-6.50); %Basophils 0.7 % (0.0-1.0); %Eosinophils 5.1 % (0.0-10.0); %Lymphocytes 20.3 % (21.0-51.0); %Monocytes 9.5 % (0.0-10.0); Hemoglobin 7.8 g/dL (12.0-16.0); Mean Corpuscular HGB CONC 33.9 g/dL (32.0-36.0); Mean Corpuscular Hemoglobin 30.4 pg (27.0-31.0); Mean Corpuscular Volume 89.5 fl (78.0-98.0); Mean Platelet Volume 9.5 fL (7.4-10.4); Platelet Count 265 10x3/uL (130-400); RBC Distribution Width 15.5 % (11.5-14.5); Red Blood Cell (RBC) Count 2.57 mill/uL (4.20-5.40); White Blood Cell (WBC) Count 8.1 10x3/uL (4.8-10.8)
[2023-06-20 06:59] LABS: Anion Gap 13 mmol/L (10-20); BUN (Urea Nitrogen) 15 mg/dL (9.8-20.1); Calc. Creatinine Clearance 106 mL/min (70-130); Calcium 8.5 mg/dL (7.8-10.44); Carbon Dioxide 22 mmol/L (23-31); Chloride 104 mmol/L (98-107); Estimated GFR 88; Glucose 93 mg/dL (83-110); Potassium 3.3 mmol/L (3.5-5.1); Sodium 136 mmol/L (136-145)
[2023-06-20] MEDS: Potassium Chloride 20 MEQ TAB PO SCH (07:55)
[2023-06-20] MEDS: FLUoxetine HCl 20 MG CAP PO SCH (07:55)
[2023-06-20] MEDS: Furosemide 40 MG TAB PO SCH (07:55)
[2023-06-20] MEDS: Folic Acid 1 MG TAB PO SCH (07:55)
[2023-06-20] MEDS: Atenolol 25 MG TAB PO SCH (07:55)
[2023-06-20] MEDS: Polyethylene Glycol 3350 17 GM Packet PO SCH (07:55)
[2023-06-20] MEDS: Aspirin 81 mg Enteric Coated Tablet PO SCH (07:55)
[2023-06-20] MEDS: Heparin 5,000 UNITS/ML VIAL SC SCH ×3 (07:56→21:09)
[2023-06-20 13:20] LABS: Vancomycin, Trough 10.7 ug/mL
[2023-06-20] MEDS ORDERED: Vancomycin (BATCH) 1.75 GM in Premix 1 BAG IVPB SCH (14:00)
[2023-06-20] MEDS ORDERED: Ipratropium/Albuterol 3 ML NEB NEB PRN (20:54)
[2023-06-20] MEDS ORDERED: Guaifenesin DM 100-10/5 ML UDCUP PO PRN (20:54)
[2023-06-20] MEDS: levETIRAcetam 500 MG TAB PO SCH (21:07)
[2023-06-20] MEDS: cefTRIAXone\\ROCEPHIN 2 GM in Sodium Chloride 0.9% 100 ML IVPB SCH (21:08)
[2023-06-20] MEDS: Atorvastatin Calcium 40 MG TAB PO SCH (21:08)
[2023-06-20] MEDS: Gabapentin 300 MG CAP PO SCH (21:08)
[2023-06-21 05:22] LABS: #Basophils 0.1 thou/uL (0.0-0.2); #Eosinphils 0.4 thou/uL (0.0-0.7); #Monocytes 0.6 thou/uL (0.11-0.59); #Neutrophils 4.5 thou/uL (1.40-6.50); %Basophils 0.9 % (0.0-1.0); %Eosinophils 5.3 % (0.0-10.0); %Lymphocytes 17.7 % (21.0-51.0); %Monocytes 8.9 % (0.0-10.0); %Neutrophils 65.3 % (42.0-75.0); Hematocrit 24.5 % (36.0-47.0); Mean Corpuscular HGB CONC 32.7 g/dL (32.0-36.0); Mean Corpuscular Volume 88.8 fl (78.0-98.0); Mean Platelet Volume 9.2 fL (7.4-10.4); Platelet Count 268 10x3/uL (130-400); RBC Distribution Width 15.5 % (11.5-14.5); Red Blood Cell (RBC) Count 2.76 mill/uL (4.20-5.40); White Blood Cell (WBC) Count 6.9 10x3/uL (4.8-10.8)
[2023-06-21 05:45] LABS: Anion Gap 10 mmol/L (10-20); BUN (Urea Nitrogen) 18 mg/dL (9.8-20.1); Calcium 8.6 mg/dL (7.8-10.44); Carbon Dioxide 25 mmol/L (23-31); Chloride 105 mmol/L (98-107); Glucose 111 mg/dL (83-110); Potassium 3.3 mmol/L (3.5-5.1); Sodium 137 mmol/L (136-145)
[2023-06-21 06:13] LABS: Calc. Creatinine Clearance 115 mL/min (70-130); Estimated GFR 90
[2023-06-21] MEDS: Carbidopa/Levodopa 25-100 mg Tablet PO SCH ×2 (06:15→11:18)
[2023-06-21] MEDS: metroNIDAZOLE 500 MG in Premix 1 BAG IVPB SCH (06:15)
[2023-06-21] MEDS: Folic Acid 1 MG TAB PO SCH (08:14)
[2023-06-21] MEDS: Furosemide 40 MG TAB PO SCH (08:15)
[2023-06-21] MEDS: Polyethylene Glycol 3350 17 GM Packet PO SCH (08:15)
[2023-06-21] MEDS: Atenolol 25 MG TAB PO SCH (08:15)
[2023-06-21] MEDS: Potassium Chloride 20 MEQ TAB PO SCH (08:15)
[2023-06-21] MEDS: Aspirin 81 mg Enteric Coated Tablet PO SCH (08:15)
[2023-06-21] MEDS: Heparin 5,000 UNITS/ML VIAL SC SCH (08:15)
[2023-06-21] MEDS: FLUoxetine HCl 20 MG CAP PO SCH (08:15)
[2023-06-21 08:22] VITALS: TEMP 98.1
[2023-06-21] MEDS ORDERED: Sulfameth/Trimethoprim DS 800-160mg TAB PO SCH (09:00)
[2023-06-21 12:57] VITALS: BP 106/66
== END 2023-06-21 13:20 | DRG 556 ==
LOC: ERS 14:20 → T4-A 20:09
PROVIDERS: ADMIT Student in an Organized Health Care Education/Training Program; ATTEND Student in an Organized Health Care Education/Training Program
DX: M79.81 Nontraumatic hematoma of soft tissue (principal); E78.5 Hyperlipidemia, unspecified; Z66 Do not resuscitate; I25.10 Atherosclerotic heart disease of native coronary artery without angina pectoris; J44.9 Chronic obstructive pulmonary disease, unspecified; I35.0 Nonrheumatic aortic (valve) stenosis; Z96.653 Presence of artificial knee joint, bilateral; Z90.49 Acquired absence of other specified parts of digestive tract; Z98.890 Other specified postprocedural states; Z98.891 History of uterine scar from previous surgery; Z90.710 Acquired absence of both cervix and uterus; Z88.5 Allergy status to narcotic agent; Z88.0 Allergy status to penicillin; Z88.8 Allergy status to other drugs, medicaments and biological substances; Z86.711 Personal history of pulmonary embolism; G20.A1 Parkinson's disease without dyskinesia, without mention of fluctuations; Z86.718 Personal history of other venous thrombosis and embolism; I11.0 Hypertensive heart disease with heart failure; I50.9 Heart failure, unspecified; Z96.642 Presence of left artificial hip joint
CPT/HCPCS: 36415; 36416; 71045; 80048; 80053; 80202; 81001; 83605; 85025; 87040; 94640; 96365; 96367; 97139; J0692; J0696; J1644; J3370; J3490; J7620; Q9967

== ENCOUNTER 2023-09-10 15:49 | Inpatient (IN) | payer MEDICARE, BC ==
[2023-09-10 17:16] LABS: Bacteria/HPF None Seen HPF (None Seen); Bilirubin Negative (Negative); Blood, Urine Negative (Negative); CAUTI Indications for Culture Alt mental st,lethar; Clarity Clear (Clear); Glucose, Urine (Dipstick) Normal (Negative); Ketone, Urine Negative (Negative); Leukocyte 25 Leu/uL (Negative); Nitrite Negative (Negative); Protein, Urine (Dipstick) Negative (Neg-Trace); RBC/HPF 0-3 HPF (0-3); Squamous Epithelial 0-3 HPF (0-3); Urobilinogen Normal mg/dL (Less than 2); WBC/HPF 0-3 HPF (0-3)
[2023-09-10 17:18] LABS: Urine Culture Reflex No No
[2023-09-10 17:34] LABS: SARS-CoV-2 NAA Rapid Test Not Detected (NotDetected)
[2023-09-10 17:43] LABS: Actual Bicarbonate (HCO3v) 31.6 mEq/L (22-28); Base Excess 10.2 mEq/L (-2.0 to +3.0); Calcium, Ionized (venous) 0.96 mmol/L (1.16-1.32); Chloride (VBG) 98 mmol/L (98-106); Hematocrit-VBG 35 % (36.0-47.0); Hemoglobin (Hb) 11.9 g/dL (11.7-16.1); Sodium 139 mmol/L (133-146)
[2023-09-10 17:45] LABS: #Eosinphils 0.3 thou/uL (0.0-0.7); #Monocytes 0.7 thou/uL (0.11-0.59); #Neutrophils 3.4 thou/uL (1.40-6.50); %Basophils 0.7 % (0.0-1.0); %Eosinophils 4.2 % (0.0-10.0); %Lymphocytes 29.1 % (21.0-51.0); %Monocytes 10.8 % (0.0-10.0); Hematocrit 33.4 % (36.0-47.0); Hemoglobin 10.7 g/dL (12.0-16.0); Mean Corpuscular Hemoglobin 26.7 pg (27.0-31.0); Mean Corpuscular Volume 83.3 fl (78.0-98.0); Mean Platelet Volume 10.4 fL (7.4-10.4); Platelet Count 218 10x3/uL (130-400); RBC Distribution Width 15.7 % (11.5-14.5); Red Blood Cell (RBC) Count 4.01 mill/uL (4.20-5.40); White Blood Cell (WBC) Count 6.1 10x3/uL (4.8-10.8)
[2023-09-10 17:46] LABS: Potassium (VBG) 2.12 mmol/L (3.70-5.30)
[2023-09-10 17:57] LABS: INR-International Normal Ratio 1.4; PTT 34.9 sec (22.9-36.1); Prothrombin Time 17.5 sec (12.0-14.7)
[2023-09-10] MEDS ORDERED: Potassium Chloride 20 MEQ TAB ONE (17:58)
[2023-09-10] MEDS ORDERED: Magnesium 2 GM/50 ML BAG (IN WATER) ONE (17:59)
[2023-09-10] MEDS ORDERED: NS 0.9% w/ 20 MEQ KCL 2,000 ML ONE (17:59)
[2023-09-10 18:03] LABS: ALT (SGPT) Less than 7 U/L (8-55); AST (SGOT) 17 U/L (5-34); Albumin 3.7 g/dL (3.4-4.8); Alkaline Phosphatase 86 U/L (40-110); Anion Gap 16 mmol/L (10-20); BUN (Urea Nitrogen) 61 mg/dL (9.8-20.1); Bilirubin, Total 0.4 mg/dL (0.2-1.2); Calc. Creatinine Clearance 0 mL/min (70-130); Calcium 9.5 mg/dL (7.8-10.44); Carbon Dioxide 31 mmol/L (23-31); Chloride 92 mmol/L (98-107); Estimated GFR 67; Globulin 3.6 g/dL (2.4-3.5); Glucose 99 mg/dL (83-110); Protein, Total 7.3 g/dL (5.8-8.1); Sodium 137 mmol/L (136-145)
[2023-09-10 18:07] LABS: Troponin I Less than 0.010 ng/mL (< 0.028)
[2023-09-10] MEDS ORDERED: Potassium Bicarbonate/Cit Ac 20 MEQ TAB ONE ×2 (18:21)
[2023-09-10] MEDS ORDERED: Acetaminophen 325 MG TAB PO PRN (21:45)
[2023-09-10] MEDS ORDERED: Ondansetron PF 4 MG/2 ML Vial IVP PRN (21:45)
[2023-09-10 22:44] LABS: Amphetamine Not Detected (NotDetected); Barbiturates Screen Not Detected (NotDetected); Benzodiazepine Screen Not Detected (NotDetected); Cocaine Metabolite Screen Not Detected (NotDetected); Methadone Not Detected (NotDetected); Methamphetamine Not Detected (NotDetected); Opiate Screen Not Detected (NotDetected); Oxycodone Screen Not Detected (NotDetected); Phencyclidine (PCP) Not Detected (NotDetected); THC/Cannabinoid Screen Not Detected (NotDetected); Tricyclic Screen Not Detected (NotDetected)
[2023-09-10 23:44] LABS: Anion Gap 15 mmol/L (10-20); BUN (Urea Nitrogen) 54 mg/dL (9.8-20.1); Calc. Creatinine Clearance 0 mL/min (70-130); Calcium 8.9 mg/dL (7.8-10.44); Carbon Dioxide 32 mmol/L (23-31); Chloride 98 mmol/L (98-107); Estimated GFR 73; Glucose 97 mg/dL (83-110); Sodium 142 mmol/L (136-145)
[2023-09-10 23:46] LABS: Potassium 2.5 mmol/L (3.5-5.1)
[2023-09-11] MEDS ORDERED: Electrolyte Replacement Protocol 1 EACH FS SCH (00:30)
[2023-09-11] MEDS ORDERED: Ipratropium/Albuterol 3 ML NEB NEB PRN (00:51)
[2023-09-11] MEDS: Potassium Bicarbonate/Cit Ac 20 MEQ TAB PO SCH ×2 (01:00→04:26)
[2023-09-11 01:22] VITALS: BMI 38.6
[2023-09-11 05:27] LABS: #Basophils 0.1 thou/uL (0.0-0.2); #Eosinphils 0.2 thou/uL (0.0-0.7); #Monocytes 0.6 thou/uL (0.11-0.59); #Neutrophils 2.9 thou/uL (1.40-6.50); %Basophils 1.2 % (0.0-1.0); %Eosinophils 4.7 % (0.0-10.0); %Lymphocytes 26.1 % (21.0-51.0); %Monocytes 11.6 % (0.0-10.0); %Neutrophils 56.2 % (42.0-75.0); Hematocrit 36.7 % (36.0-47.0); Hemoglobin 10.8 g/dL (12.0-16.0); Mean Corpuscular HGB CONC 29.4 g/dL (32.0-36.0); Mean Platelet Volume 10.7 fL (7.4-10.4); Platelet Count 179 10x3/uL (130-400); RBC Distribution Width 15.8 % (11.5-14.5); White Blood Cell (WBC) Count 5.1 10x3/uL (4.8-10.8)
[2023-09-11 05:29] LABS: Mean Corpuscular Volume 91.8 fl (78.0-98.0)
[2023-09-11 05:49] LABS: Anion Gap 15 mmol/L (10-20); BUN (Urea Nitrogen) 50 mg/dL (9.8-20.1); Calc. Creatinine Clearance 79 mL/min (70-130); Calcium 9.2 mg/dL (7.8-10.44); Carbon Dioxide 32 mmol/L (23-31); Chloride 99 mmol/L (98-107); Estimated GFR 75; Glucose 82 mg/dL (83-110); Magnesium 2.4 mg/dL (1.6-2.6); Potassium 3.1 mmol/L (3.5-5.1); Sodium 143 mmol/L (136-145)
[2023-09-11] MEDS: Carbidopa/Levodopa 25-100 mg Tablet PO SCH ×4 (06:44→18:39)
[2023-09-11] MEDS ORDERED: Electrolyte Replacement Protocol FS PRN (07:30)
[2023-09-11] MEDS ORDERED: Potassium Bicarbonate/Cit Ac 20 MEQ TAB PO SCH (07:45)
[2023-09-11] MEDS ORDERED: Potassium Chloride 20 MEQ TAB PO SCH (08:00)
[2023-09-11] MEDS: Ipratropium/Albuterol 3 ML NEB NEB SCH ×3 (08:25→19:32)
[2023-09-11] MEDS: Aspirin Chewable 81 MG TAB PO SCH (09:38)
[2023-09-11] MEDS: Apixaban 2.5 MG TAB PO SCH ×2 (09:38→21:28)
[2023-09-11] MEDS: Lactated Ringer's 1,000 ML IV SCH ×2 (09:39→21:30)
[2023-09-11] MEDS: Entacapone 200 mg Tablet PO SCH ×4 (13:46→21:27)
[2023-09-11 14:41] LABS: Potassium 3.2 mmol/L (3.5-5.1)
[2023-09-11] MEDS: Atorvastatin Calcium 40 MG TAB PO SCH (21:27)
[2023-09-11] MEDS: levETIRAcetam 500 MG TAB PO SCH (21:28)
[2023-09-12] MEDS: Ipratropium/Albuterol 3 ML NEB NEB SCH ×4 (00:51→18:52)
[2023-09-12 05:22] LABS: #Eosinphils 0.2 thou/uL (0.0-0.7); #Monocytes 0.4 thou/uL (0.11-0.59); #Neutrophils 2.7 thou/uL (1.40-6.50); %Basophils 0.9 % (0.0-1.0); %Eosinophils 3.8 % (0.0-10.0); %Lymphocytes 23.5 % (21.0-51.0); %Neutrophils 61.6 % (42.0-75.0); Hematocrit 32.7 % (36.0-47.0); Hemoglobin 10.1 g/dL (12.0-16.0); Mean Corpuscular HGB CONC 30.9 g/dL (32.0-36.0); Mean Corpuscular Hemoglobin 26.6 pg (27.0-31.0); Mean Platelet Volume 10.8 fL (7.4-10.4); Platelet Count 164 10x3/uL (130-400); RBC Distribution Width 15.7 % (11.5-14.5); Red Blood Cell (RBC) Count 3.79 mill/uL (4.20-5.40); White Blood Cell (WBC) Count 4.4 10x3/uL (4.8-10.8)
[2023-09-12 05:36] LABS: Mean Corpuscular Volume 86.3 fl (78.0-98.0)
[2023-09-12 05:46] LABS: Anion Gap 12 mmol/L (10-20); BUN (Urea Nitrogen) 23 mg/dL (9.8-20.1); Calc. Creatinine Clearance 101 mL/min (70-130); Calcium 8.9 mg/dL (7.8-10.44); Carbon Dioxide 33 mmol/L (23-31); Chloride 99 mmol/L (98-107); Estimated GFR 89; Glucose 100 mg/dL (83-110); Magnesium 2.2 mg/dL (1.6-2.6); Potassium 2.9 mmol/L (3.5-5.1); Sodium 141 mmol/L (136-145)
[2023-09-12] MEDS: Carbidopa/Levodopa 25-100 mg Tablet PO SCH ×4 (06:32→18:29)
[2023-09-12] MEDS: Potassium Chloride 20 MEQ TAB PO SCH ×2 (08:45→08:58)
[2023-09-12] MEDS: Potassium Chloride 20 MEQ in Premix 1 BAG IVPB SCH ×2 (10:44→14:47)
[2023-09-12] MEDS: Aspirin Chewable 81 MG TAB PO SCH (10:44)
[2023-09-12] MEDS: Apixaban 2.5 MG TAB PO SCH ×2 (10:44→21:15)
[2023-09-12] MEDS: Entacapone 200 mg Tablet PO SCH ×4 (10:44→21:15)
[2023-09-12 16:50] LABS: Potassium 3.3 mmol/L (3.5-5.1)
[2023-09-12] MEDS: levETIRAcetam 500 MG TAB PO SCH (21:15)
[2023-09-12] MEDS: Atorvastatin Calcium 40 MG TAB PO SCH (21:15)
[2023-09-13] MEDS: Ipratropium/Albuterol 3 ML NEB NEB SCH ×4 (01:14→19:23)
[2023-09-13 05:18] LABS: #Eosinphils 0.2 thou/uL (0.0-0.7); #Monocytes 0.5 thou/uL (0.11-0.59); #Neutrophils 3.2 thou/uL (1.40-6.50); %Basophils 0.7 % (0.0-1.0); %Eosinophils 4.2 % (0.0-10.0); %Lymphocytes 27.3 % (21.0-51.0); %Monocytes 9.4 % (0.0-10.0); %Neutrophils 58.2 % (42.0-75.0); Hematocrit 32.1 % (36.0-47.0); Hemoglobin 10.2 g/dL (12.0-16.0); Mean Corpuscular HGB CONC 31.8 g/dL (32.0-36.0); Mean Corpuscular Hemoglobin 27.1 pg (27.0-31.0); Mean Corpuscular Volume 85.1 fl (78.0-98.0); Mean Platelet Volume 10.1 fL (7.4-10.4); Platelet Count 169 10x3/uL (130-400); RBC Distribution Width 15.6 % (11.5-14.5); Red Blood Cell (RBC) Count 3.77 mill/uL (4.20-5.40); White Blood Cell (WBC) Count 5.4 10x3/uL (4.8-10.8)
[2023-09-13 05:45] LABS: Anion Gap 11 mmol/L (10-20); BUN (Urea Nitrogen) 12 mg/dL (9.8-20.1); Calc. Creatinine Clearance 96 mL/min (70-130); Carbon Dioxide 27 mmol/L (23-31); Chloride 104 mmol/L (98-107); Estimated GFR 88; Glucose 95 mg/dL (83-110); Potassium 3.3 mmol/L (3.5-5.1); Sodium 139 mmol/L (136-145)
[2023-09-13] MEDS: Entacapone 200 mg Tablet PO SCH ×4 (09:49→20:34)
[2023-09-13] MEDS: Potassium Chloride 20 MEQ in Premix 1 BAG IVPB SCH ×2 (09:49→15:32)
[2023-09-13] MEDS: Apixaban 2.5 MG TAB PO SCH ×2 (09:50→20:34)
[2023-09-13] MEDS: Carbidopa/Levodopa 25-100 mg Tablet PO SCH ×4 (09:50→18:42)
[2023-09-13] MEDS: Aspirin Chewable 81 MG TAB PO SCH (09:50)
[2023-09-13 15:13] LABS: Potassium 3.4 mmol/L (3.5-5.1)
[2023-09-13] MEDS ORDERED: Potassium Chloride 20 MEQ in Premix 1 BAG IVPB SCH (15:15)
[2023-09-13] MEDS: Atorvastatin Calcium 40 MG TAB PO SCH (20:34)
[2023-09-13] MEDS: levETIRAcetam 500 MG TAB PO SCH (20:34)
[2023-09-14] MEDS: Ipratropium/Albuterol 3 ML NEB NEB SCH ×4 (00:46→18:51)
[2023-09-14 05:12] LABS: #Basophils 0.1 thou/uL (0.0-0.2); #Eosinphils 0.2 thou/uL (0.0-0.7); #Monocytes 0.6 thou/uL (0.11-0.59); #Neutrophils 3.8 thou/uL (1.40-6.50); %Basophils 0.8 % (0.0-1.0); %Eosinophils 3.4 % (0.0-10.0); %Lymphocytes 22.1 % (21.0-51.0); %Monocytes 9.3 % (0.0-10.0); %Neutrophils 64.1 % (42.0-75.0); Hematocrit 33.8 % (36.0-47.0); Hemoglobin 10.5 g/dL (12.0-16.0); Mean Corpuscular HGB CONC 31.1 g/dL (32.0-36.0); Mean Corpuscular Hemoglobin 26.3 pg (27.0-31.0); Mean Corpuscular Volume 84.7 fl (78.0-98.0); Mean Platelet Volume 10.4 fL (7.4-10.4); Platelet Count 173 10x3/uL (130-400); RBC Distribution Width 15.6 % (11.5-14.5); Red Blood Cell (RBC) Count 3.99 mill/uL (4.20-5.40); White Blood Cell (WBC) Count 5.9 10x3/uL (4.8-10.8)
[2023-09-14 05:39] LABS: ALT (SGPT) Less than 7 U/L (8-55); AST (SGOT) 13 U/L (5-34); Albumin 3.2 g/dL (3.4-4.8); Alkaline Phosphatase 73 U/L (40-110); Anion Gap 13 mmol/L (10-20); BUN (Urea Nitrogen) 12 mg/dL (9.8-20.1); Bilirubin, Total 0.6 mg/dL (0.2-1.2); Calc. Creatinine Clearance 102 mL/min (70-130); Calcium 8.9 mg/dL (7.8-10.44); Carbon Dioxide 24 mmol/L (23-31); Chloride 106 mmol/L (98-107); Estimated GFR 90; Globulin 3.3 g/dL (2.4-3.5); Glucose 100 mg/dL (83-110); Magnesium 1.9 mg/dL (1.6-2.6); Phosphorus 3.1 mg/dL (2.3-4.7); Potassium 3.5 mmol/L (3.5-5.1); Protein, Total 6.5 g/dL (5.8-8.1); Sodium 139 mmol/L (136-145)
[2023-09-14] MEDS ORDERED: Magnesium 2 GM/50 ML(in water) 2 GM in Premix 1 BAG IVPB SCH (06:45)
[2023-09-14] MEDS ORDERED: Potassium Bicarbonate/Cit Ac 20 MEQ TAB PER TUBE SCH (06:45)
[2023-09-14] MEDS: Entacapone 200 mg Tablet PO SCH ×4 (08:58→20:41)
[2023-09-14] MEDS: Aspirin Chewable 81 MG TAB PO SCH (08:58)
[2023-09-14] MEDS: Apixaban 2.5 MG TAB PO SCH ×2 (08:59→20:40)
[2023-09-14] MEDS: Carbidopa/Levodopa 25-100 mg Tablet PO SCH ×4 (08:59→20:41)
[2023-09-14 16:30] LABS: Bacteria/HPF None Seen HPF (None Seen); Bilirubin Negative (Negative); Blood, Urine Negative (Negative); CAUTI Indications for Culture Dysuria,urgency,freq; Clarity Turbid (Clear); Glucose, Urine (Dipstick) Normal (Negative); Ketone, Urine Negative (Negative); Leukocyte Negative Leu/uL (Negative); Nitrite Negative (Negative); Protein, Urine (Dipstick) 10 mg/dL (Neg-Trace); RBC/HPF 0-3 HPF (0-3); Specific Gravity, Urine 1.016 (1.002-1.036); Squamous Epithelial 0-3 HPF (0-3); Urobilinogen Normal mg/dL (Less than 2); WBC/HPF 0-3 HPF (0-3)
[2023-09-14 16:32] LABS: Urine Culture Reflex No No
[2023-09-14] MEDS: Atorvastatin Calcium 40 MG TAB PO SCH (20:40)
[2023-09-14] MEDS: levETIRAcetam 500 MG TAB PO SCH (20:42)
[2023-09-15] MEDS: Ipratropium/Albuterol 3 ML NEB NEB SCH ×2 (00:26→08:46)
[2023-09-15 04:32] LABS: #Basophils 0.1 thou/uL (0.0-0.2); #Eosinphils 0.3 thou/uL (0.0-0.7); #Monocytes 0.5 thou/uL (0.11-0.59); #Neutrophils 3.4 thou/uL (1.40-6.50); %Basophils 0.9 % (0.0-1.0); %Eosinophils 4.9 % (0.0-10.0); %Lymphocytes 24.4 % (21.0-51.0); %Monocytes 8.4 % (0.0-10.0); %Neutrophils 61.2 % (42.0-75.0); Hemoglobin 10.3 g/dL (12.0-16.0); Mean Corpuscular HGB CONC 31.2 g/dL (32.0-36.0); Mean Corpuscular Hemoglobin 26.2 pg (27.0-31.0); Mean Platelet Volume 10.3 fL (7.4-10.4); Platelet Count 175 10x3/uL (130-400); RBC Distribution Width 15.4 % (11.5-14.5); Red Blood Cell (RBC) Count 3.93 mill/uL (4.20-5.40); White Blood Cell (WBC) Count 5.5 10x3/uL (4.8-10.8)
[2023-09-15 05:05] LABS: ALT (SGPT) Less than 7 U/L (8-55); AST (SGOT) 11 U/L (5-34); Albumin 3.2 g/dL (3.4-4.8); Alkaline Phosphatase 73 U/L (40-110); Anion Gap 9 mmol/L (10-20); BUN (Urea Nitrogen) 15 mg/dL (9.8-20.1); Bilirubin, Total 0.5 mg/dL (0.2-1.2); Calc. Creatinine Clearance 102 mL/min (70-130); Calcium 8.6 mg/dL (7.8-10.44); Carbon Dioxide 26 mmol/L (23-31); Chloride 106 mmol/L (98-107); Estimated GFR 90; Globulin 3.1 g/dL (2.4-3.5); Glucose 98 mg/dL (83-110); Potassium 3.4 mmol/L (3.5-5.1); Protein, Total 6.3 g/dL (5.8-8.1); Sodium 138 mmol/L (136-145)
[2023-09-15] MEDS: Carbidopa/Levodopa 25-100 mg Tablet PO SCH ×4 (05:23→18:26)
[2023-09-15] MEDS: Entacapone 200 mg Tablet PO SCH ×4 (08:03→20:59)
[2023-09-15] MEDS: Apixaban 2.5 MG TAB PO SCH ×2 (08:03→20:59)
[2023-09-15] MEDS: Aspirin Chewable 81 MG TAB PO SCH (08:03)
[2023-09-15] MEDS ORDERED: Ipratropium/Albuterol 3 ML NEB NEB PRN ×2 (08:58→09:00)
[2023-09-15] MEDS ORDERED: Potassium Chloride 20 MEQ TAB PO SCH (13:30)
[2023-09-15] MEDS ORDERED: Potassium Bicarbonate/Cit Ac 20 MEQ TAB PO SCH (13:45)
[2023-09-15] MEDS: Atorvastatin Calcium 40 MG TAB PO SCH (20:59)
[2023-09-15] MEDS: levETIRAcetam 500 MG TAB PO SCH (20:59)
[2023-09-16] MEDS: Carbidopa/Levodopa 25-100 mg Tablet PO SCH ×4 (06:19→17:15)
[2023-09-16 06:56] LABS: #Basophils 0.1 thou/uL (0.0-0.2); #Eosinphils 0.4 thou/uL (0.0-0.7); #Monocytes 0.5 thou/uL (0.11-0.59); %Basophils 0.8 % (0.0-1.0); %Eosinophils 5.5 % (0.0-10.0); %Lymphocytes 22.9 % (21.0-51.0); %Monocytes 8.3 % (0.0-10.0); %Neutrophils 62.2 % (42.0-75.0); Hematocrit 32.1 % (36.0-47.0); Mean Corpuscular HGB CONC 31.2 g/dL (32.0-36.0); Mean Corpuscular Hemoglobin 26.5 pg (27.0-31.0); Mean Corpuscular Volume 85.1 fl (78.0-98.0); Mean Platelet Volume 10.4 fL (7.4-10.4); Platelet Count 193 10x3/uL (130-400); RBC Distribution Width 15.5 % (11.5-14.5); Red Blood Cell (RBC) Count 3.77 mill/uL (4.20-5.40); White Blood Cell (WBC) Count 6.4 10x3/uL (4.8-10.8)
[2023-09-16] MEDS ORDERED: Potassium Chloride 10 MEQ in Premix 1 BAG IVPB SCH (08:15)
[2023-09-16] MEDS: Apixaban 2.5 MG TAB PO SCH ×2 (08:47→21:13)
[2023-09-16] MEDS: Entacapone 200 mg Tablet PO SCH ×4 (08:47→21:13)
[2023-09-16] MEDS: Aspirin Chewable 81 MG TAB PO SCH (08:47)
[2023-09-16] MEDS: levETIRAcetam 500 MG TAB PO SCH (21:13)
[2023-09-16] MEDS: Atorvastatin Calcium 40 MG TAB PO SCH (21:13)
[2023-09-17] MEDS: Carbidopa/Levodopa 25-100 mg Tablet PO SCH ×3 (05:37→14:59)
[2023-09-17 07:44] VITALS: BP 129/58; TEMP 98.6
[2023-09-17 07:51] LABS: Anion Gap 13 mmol/L (10-20); BUN (Urea Nitrogen) 19 mg/dL (9.8-20.1); Calc. Creatinine Clearance 102 mL/min (70-130); Calcium 8.8 mg/dL (7.8-10.44); Carbon Dioxide 22 mmol/L (23-31); Chloride 107 mmol/L (98-107); Estimated GFR 90; Glucose 92 mg/dL (83-110); Potassium 4.4 mmol/L (3.5-5.1); Sodium 138 mmol/L (136-145)
[2023-09-17] MEDS: Apixaban 2.5 MG TAB PO SCH (08:24)
[2023-09-17] MEDS: Aspirin Chewable 81 MG TAB PO SCH (08:24)
[2023-09-17] MEDS: Entacapone 200 mg Tablet PO SCH ×2 (08:24→14:59)
== END 2023-09-17 14:59 | DRG 640 ==
LOC: ERS 15:49 → 2NO 20:23 → OBSVTOIN 09-12 13:25 → T4-B 09-15 16:50
PROVIDERS: ADMIT Internal Medicine; ATTEND Family Medicine
DX: E87.6 Hypokalemia (principal); G93.41 Metabolic encephalopathy; I50.32 Chronic diastolic (congestive) heart failure; Z96.653 Presence of artificial knee joint, bilateral; J44.9 Chronic obstructive pulmonary disease, unspecified; I11.0 Hypertensive heart disease with heart failure; I25.10 Atherosclerotic heart disease of native coronary artery without angina pectoris; G62.9 Polyneuropathy, unspecified; G20.A1 Parkinson's disease without dyskinesia, without mention of fluctuations; E87.4 Mixed disorder of acid-base balance; R30.0 Dysuria; F32.A Depression, unspecified; I35.0 Nonrheumatic aortic (valve) stenosis; Z66 Do not resuscitate; F03.90 Unspecified dementia, unspecified severity, without behavioral disturbance, psychotic disturbance, mood disturbance, and anxiety; E86.0 Dehydration; Z11.52 Encounter for screening for COVID-19; Z88.5 Allergy status to narcotic agent; Z86.718 Personal history of other venous thrombosis and embolism; Z88.8 Allergy status to other drugs, medicaments and biological substances; Z88.0 Allergy status to penicillin; Z79.899 Other long term (current) drug therapy; Z79.01 Long term (current) use of anticoagulants; Z79.51 Long term (current) use of inhaled steroids; Z79.82 Long term (current) use of aspirin; Z90.49 Acquired absence of other specified parts of digestive tract; Z90.710 Acquired absence of both cervix and uterus; Z98.890 Other specified postprocedural states
CPT/HCPCS: 36415; 36416; 51701; 70450; 71045; 80048; 80053; 80306; 81001; 82140; 82805; 83605; 83735; 83880; 84100; 84443; 84484; 85025; 85610; 85730; 87040; 87086; 93005; 94640; 94760; 96361; 96365; 96366; 96367; 96376; G0378; J2405; J3475; J3480; J7120; J7620